=== PATIENT | female | born 1945 | race Caucasian/White ===

== ENCOUNTER 2017-01-22 09:57 | Outpatient (CLI) | payer MEDICARE | END 2017-01-22 09:58 | disposition home or self-care (01) | DX: E06.5 Other chronic thyroiditis (principal); R04.0 Epistaxis; E21.3 Hyperparathyroidism, unspecified; I48.91 Unspecified atrial fibrillation ==

== ENCOUNTER 2017-04-06 08:52 | Outpatient (CLI) | payer OTHER ==
[2017-04-06 10:57] LABS: THYROID STIMULATING HORMONE 3.81 uIU/mL (0.34-5.60)
== END 2017-04-06 08:53 | disposition home or self-care (01) ==
LOC: LAB 08:52
PROVIDERS: ATTEND Internal Medicine Endocrinology, Diabetes & Metabolism
DX: E04.1 Nontoxic single thyroid nodule (principal)
CPT/HCPCS: 36415; 84439; 84443

== ENCOUNTER 2017-04-22 11:42 | Outpatient (CLI) | payer OTHER ==
[2017-04-22 13:53] LABS: THYROID STIMULATING HORMONE 3.74 uIU/mL (0.34-5.60)
== END 2017-04-22 11:43 | disposition home or self-care (01) ==
LOC: LAB 11:42
PROVIDERS: ATTEND Internal Medicine Endocrinology, Diabetes & Metabolism
DX: E04.1 Nontoxic single thyroid nodule (principal)
CPT/HCPCS: 36415; 84439; 84443

== ENCOUNTER 2017-05-31 09:16 | Outpatient (CLI) | payer OTHER ==
--- NOTE | 2017-06-01 06:40 | DEXA Report ---
DEXA BONE MINERAL DENSITY STUDY: 05/31/2017 CLINICAL HISTORY: A 71-year-old postmenopausal female with hyperparathyroidism. TECHNIQUE: Dual energy x-ray absorptiometry (DXA) was performed on a [employer] system. Regions measured are the AP spine, femoral neck, and, if needed, forearm. COMPARISON: None. In accordance with the International Society for Clinical Densitometry (ISCD) guidelines, data from previous exams may be reanalyzed using current recommendations and techniques. This is done to allow a more accurate basis for comparison with the current study. FINDINGS: L1 through L4 bone mineral density is 1.126 grams/square cm for a T- score of -0.5. This is within normal limits according to World Health Organization guidelines. This T-score may be artifactually elevated by scoliosis and significant osteoarthritis as well as degenerative joint disease. Left hip total bone mineral density is 0.864 grams/square cm for a T-score of - 1.1. This is compatible with mild osteopenia according to World Health Organization guidelines. Left femoral neck bone mineral density is 0.820 grams/square cm for a T-score of -1.6. This is compatible with osteopenia according to World Health Organization guidelines. Left wrist radius 33% bone mineral density is 0.56 grams/square cm for a T- score of -3.6. This is compatible with osteoporosis according to World Health Organization guidelines. The data for the lumbar spine is as follows: REGION BMD (g/cm/cm) T-SCORE Z-SCORE L1 0.895 -2.0 -0.6 L2 1.101 -0.8 0.5 L3 1.299 0.8 2.2 L4 1.198 0.0 1.3 TOTAL 1.126 -0.5 0.9 NOTE: All evaluable vertebrae are used for classification. The data for the hip is as follows: REGION BMD (g/cm/cm) T-SCORE Z-SCORE Neck 0.820 -1.6 -0.1 TOTAL 0.864 -1.1 0.1 NOTE: The femoral neck or total proximal femur, whichever is lowest, is used for classification. The data for the forearm is as follows: REGION BMD (g/cm/cm) T-SCORE Z-SCORE 1/3 0.560 -3.6 -1.7 NOTE: The 33% radius of the nondominant forearm is used for classification. IMPRESSION: THE WHO CLASSIFICATION BASED ON THE INTERNATIONAL REFERENCE STANDARD IS OSTEOPOROSIS. THE FRACTURE RISK IS SIGNIFICANTLY INCREASED. RECOMMENDATION: Patients with diagnosis of osteoporosis or osteopenia should have regular bone mineral density assessment. For those eligible for Medicare, routine testing is allowed once every 2 years. Testing frequency can be increased for patients who have rapidly progressing disease or for those who are receiving medical therapy to restore bone mass. COMMENT: World Health Organization (WHO) definitions for osteoporosis and osteopenia: NORMAL BMD: T-score at -1.0 or higher, fracture risk is low. OSTEOPENIA BMD: T-score between -1.0 and -2.5, fracture risk is increased. OSTEOPOROSIS BMD: T-score at -2.5 or lower, fracture risk high. National Osteoporosis Foundation recommends: 1. Obtain adequate dietary calcium (at least 1200 mg per day) and vitamin D (400 -800 international units per day). 2. Participate, as appropriate, in regular weightbearing and muscle- strengthening exercise. 3. Avoid tobacco use and reduce alcohol and caffeine intake. 4. For more detailed information see the website at www.NOF.org. MTDD
== END 2017-05-31 09:17 | disposition home or self-care (01) ==
LOC: DI 09:16
PROVIDERS: ATTEND Internal Medicine Endocrinology, Diabetes & Metabolism
DX: M81.0 Age-related osteoporosis without current pathological fracture (principal); E03.9 Hypothyroidism, unspecified
CPT/HCPCS: 36415; 77080; 77081; 84439; 84443

== ENCOUNTER 2017-05-31 09:54 | Outpatient (CLI) | payer OTHER ==
[2017-05-31 11:48] LABS: THYROID STIMULATING HORMONE 3.12 uIU/mL (0.34-5.60)
== END 2017-05-31 09:55 | disposition home or self-care (01) ==
LOC: LAB 09:54
PROVIDERS: ATTEND Internal Medicine Endocrinology, Diabetes & Metabolism
DX: E03.9 Hypothyroidism, unspecified (principal)
CPT/HCPCS: 36415; 84439; 84443

== ENCOUNTER 2017-07-30 08:03 | Outpatient (CLI) | payer OTHER ==
[2017-07-30 08:48] LABS: CALCIUM, IONIZED 1.1 mmol/L (1.15-1.33); VBG PH 7.361 (7.31-7.41)
[2017-07-30 08:51] LABS: BASOPHILS % (AUTO) 1.1 %; EOSINOPHILS # (AUTO) 0.1 10^3/uL (0.0-0.7); EOSINOPHILS % (AUTO) 1.4 %; HCT - HEMATOCRIT 41.9 % (37.0-47.0); HGB - HEMOGLOBIN 14.4 g/dL (12.0-16.0); LYMPHOCYTES # (AUTO) 1.5 10^3/uL (1.5-3.5); LYMPHOCYTES % (AUTO) 33.8 %; MEAN CORPUSCULAR HEMOGLOBIN 32.3 pg (27.0-31.0); MEAN CORPUSCULAR HGB CONC 34.3 g/dL (32.0-36.0); MEAN CORPUSCULAR VOLUME 94.1 fL (81.0-99.0); MEAN PLATELET VOLUME 8.5 fL (7.9-10.8); MONOCYTES # (AUTO) 0.4 10^3/uL (0.0-1.0); MONOCYTES % (AUTO) 8.8 %; NEUTROPHILS # (AUTO) 2.4 10^3/uL (1.5-6.6); NEUTROPHILS % (AUTO) 54.9 %; NUCLEATED RED BLOOD CELLS AUTO 0.1 /100WBC; RED BLOOD COUNT 4.45 10^6/uL (4.20-5.40); RED CELL DISTRIBUTION WIDTH 12.7 % (12.0-15.0); UNCORRECTED WHITE BLOOD COUNT 4.3 x10^3/uL; WHITE BLOOD COUNT 4.3 x10^3/uL (4.8-10.8)
[2017-07-30 08:59] LABS: ALBUMIN/GLOBULIN RATIO 1.8 (1.0-2.2); CALCIUM 8.6 mg/dL (8.5-10.3); CREATININE 0.9 mg/dL (0.4-1.0); TOTAL PROTEIN 6.6 g/dL (6.7-8.2)
[2017-07-30 09:33] LABS: THYROID STIMULATING HORMONE 4.48 uIU/mL (0.34-5.60)
== END 2017-07-30 08:04 | disposition home or self-care (01) ==
LOC: LAB 08:03
PROVIDERS: ATTEND Family Medicine
DX: E06.5 Other chronic thyroiditis (principal); E78.5 Hyperlipidemia, unspecified; E21.3 Hyperparathyroidism, unspecified; I48.91 Unspecified atrial fibrillation
CPT/HCPCS: 36415; 80053; 82330; 83970; 84439; 84443; 85025

== ENCOUNTER 2017-10-11 10:09 | Outpatient (CLI) | payer OTHER ==
[2017-10-11 10:41] LABS: CALCIUM, IONIZED 1.11 mmol/L (1.15-1.33); VBG PH 7.35 (7.31-7.41)
[2017-10-11 10:49] LABS: CALCIUM 8.8 mg/dL (8.5-10.3); CREATININE 0.9 mg/dL (0.4-1.0); POTASSIUM 3.7 mmol/L (3.5-5.0)
== END 2017-10-11 10:10 | disposition home or self-care (01) ==
LOC: LAB 10:09
PROVIDERS: ATTEND Family Medicine
DX: E21.3 Hyperparathyroidism, unspecified (principal); E06.5 Other chronic thyroiditis; E78.5 Hyperlipidemia, unspecified; I48.91 Unspecified atrial fibrillation
CPT/HCPCS: 36415; 80048; 82330; 83970

== ENCOUNTER 2017-11-16 09:51 | Outpatient (CLI) | payer MEDICARE ==
[2017-11-16 10:28] LABS: VBG PH 7.373 (7.31-7.41)
[2017-11-16 11:01] LABS: ALBUMIN 4.4 g/dL (3.2-5.5); ALBUMIN/GLOBULIN RATIO 1.8 (1.0-2.2); ALKALINE PHOSPHATASE 70 IU/L (42-121); ALT ALANINE AMINOTRANSFERASE 33 IU/L (10-60); AST ASPARTATE AMINOTRANSFERASE 31 IU/L (10-42); BUN - BLOOD UREA NITROGEN 29 mg/dL (6-20); CALCIUM 9.6 mg/dL (8.5-10.3); CARBON DIOXIDE - CO2 32 mmol/L (21-32); CHLORIDE 101 mmol/L (101-111); CREATININE 1.2 mg/dL (0.4-1.0); GFR - MDRD 44 (>89); GLUCOSE 114 mg/dL (70-100); SODIUM 140 mmol/L (135-145); TOTAL PROTEIN 6.9 g/dL (6.7-8.2)
== END 2017-11-16 09:52 | disposition home or self-care (01) ==
LOC: LAB 09:51
PROVIDERS: ATTEND Family Medicine
DX: E06.5 Other chronic thyroiditis (principal); E83.51 Hypocalcemia; E21.3 Hyperparathyroidism, unspecified; E55.9 Vitamin D deficiency, unspecified
CPT/HCPCS: 36415; 80053; 82306; 82330; 84443

== ENCOUNTER 2017-11-18 07:12 | Day surgery (SDC) | payer MEDICARE, OTHER ==
[2017-11-18] MEDS ORDERED: LACTATED RINGERS 1,000 ML IV ONE (07:38)
[2017-11-18] MEDS ORDERED: fentaNYL 100 MCG/2 ML VIAL IVP ONE (08:44)
[2017-11-18] MEDS ORDERED: MIDAZOLAM 2 MG/2 ML VIAL IVP ONE (08:44)
[2017-11-18 09:09] VITALS: BP 92/75
== END 2017-11-18 07:13 | disposition home or self-care (01) ==
LOC: SDS 07:12
PROVIDERS: ATTEND Surgery
PROC: 0DBM8ZX Excision of Descending Colon, Via Natural or Artificial Opening Endoscopic, Diagnostic (ICD-10-PCS; 2017-11-18)
PROC: 0DBK8ZX Excision of Ascending Colon, Via Natural or Artificial Opening Endoscopic, Diagnostic (ICD-10-PCS; principal; 2017-11-18 08:15)
DX: Z12.11 Encounter for screening for malignant neoplasm of colon (principal); D12.2 Benign neoplasm of ascending colon; K64.8 Other hemorrhoids; K63.5 Polyp of colon; Z79.01 Long term (current) use of anticoagulants
CPT/HCPCS: 45380; J7120

== ENCOUNTER 2017-12-28 09:09 | Outpatient (CLI) | payer MEDICARE ==
[2017-12-28 09:50] LABS: CHOL/HDL RATIO 2.7 (<4.4); CHOLESTEROL 146 mg/dL; HDL CHOLESTEROL 55 mg/dL; LDL CHOLESTEROL,CALCULATED 74 mg/dL; LDL/HDL RATIO 1.3 (<4.4); VLDL CHOLESTEROL 17 mg/dL
== END 2017-12-28 09:10 | disposition home or self-care (01) ==
LOC: LAB 09:09
PROVIDERS: ATTEND Internal Medicine Cardiovascular Disease
DX: E78.5 Hyperlipidemia, unspecified (principal)
CPT/HCPCS: 36415; 80061; 83721

== ENCOUNTER 2018-06-21 08:54 | Outpatient (CLI) | payer MEDICARE ==
[2018-06-21 13:36] LABS: ALBUMIN 4.2 g/dL (3.2-5.5); ALBUMIN/GLOBULIN RATIO 1.6 (1.0-2.2); ALKALINE PHOSPHATASE 64 IU/L (42-121); ALT ALANINE AMINOTRANSFERASE 28 IU/L (10-60); AST ASPARTATE AMINOTRANSFERASE 31 IU/L (10-42); BUN - BLOOD UREA NITROGEN 20 mg/dL (6-20); CARBON DIOXIDE - CO2 29 mmol/L (21-32); CHLORIDE 105 mmol/L (101-111); CREATININE 0.9 mg/dL (0.4-1.0); GFR - MDRD 62 (>89); GLUCOSE 88 mg/dL (70-100); SODIUM 142 mmol/L (135-145); TOTAL PROTEIN 6.8 g/dL (6.7-8.2)
== END 2018-06-21 08:55 ==
LOC: LAB.WCP 08:54
PROVIDERS: ATTEND Family Medicine
DX: E83.51 Hypocalcemia (principal); E06.5 Other chronic thyroiditis; E21.3 Hyperparathyroidism, unspecified; I48.91 Unspecified atrial fibrillation
CPT/HCPCS: 36415; 80053; 84443

== ENCOUNTER 2018-11-11 10:42 | Outpatient (CLI) | payer MEDICARE ==
--- NOTE | 2018-11-14 08:55 | Mammography Report ---
Reason: SCREENING MAMMO Procedure Date: 11/11/2018 Accession Number: [id number] / [id number] Procedure: KARLA - Screening Mammo w/Jacky CPT Code: FULL RESULT: EXAM: Screening Mammo w/Jacky DATE: 11/11/2018 10:53 AM CLINICAL HISTORY: Screening encounter. No reported risk factors. TECHNIQUE: Bilateral CC and MLO views were obtained. COMPARISON: 11/03/2016 through 03/29/2012. FINDINGS: The breasts demonstrate scattered fibroglandular densities bilaterally. There are typically benign vascular calcifications. No suspicious masses, clustered microcalcifications, or regions of architectural distortion are identified. IMPRESSION: Benign findings RECOMMENDATION: Routine annual screening unless otherwise clinically indicated. BIRADS CATEGORY 2: Benign findings STANDARD QUALIFYING STATEMENTS: 1. This examination was not reviewed with the aid of Computer-Aided Detection (CAD). 2. A negative or benign imaging report should not preclude biopsy if clinically suspicious findings are present. 3. Dense breasts may obscure an underlying neoplasm. 4. This examination was reviewed with the aid of 3D breast imaging (tomosynthesis).
== END 2018-11-11 10:43 | disposition home or self-care (01) ==
LOC: DI 10:42
DX: Z12.31 Encounter for screening mammogram for malignant neoplasm of breast (principal)
CPT/HCPCS: 77063; 77067

== ENCOUNTER 2018-12-13 08:00 | Outpatient (CLI) | payer MEDICARE ==
[2018-12-13 13:15] LABS: BASOPHILS # (AUTO) 0.1 10^3/uL (0.0-0.1); BASOPHILS % (AUTO) 1.3 %; EOSINOPHILS # (AUTO) 0.1 10^3/uL (0.0-0.7); EOSINOPHILS % (AUTO) 1.2 %; HGB - HEMOGLOBIN 14.1 g/dL (12.0-16.0); LYMPHOCYTES # (AUTO) 1.6 10^3/uL (1.5-3.5); LYMPHOCYTES % (AUTO) 36.4 %; MEAN CORPUSCULAR HEMOGLOBIN 32.8 pg (27.0-31.0); MEAN CORPUSCULAR HGB CONC 34.8 g/dL (32.0-36.0); MEAN CORPUSCULAR VOLUME 94.3 fL (81.0-99.0); MEAN PLATELET VOLUME 9.1 fL (7.9-10.8); MONOCYTES # (AUTO) 0.3 10^3/uL (0.0-1.0); MONOCYTES % (AUTO) 7.7 %; NEUTROPHILS # (AUTO) 2.4 10^3/uL (1.5-6.6); NEUTROPHILS % (AUTO) 53.4 %; PLT - PLATELET COUNT 189 10^3/uL (130-450); RED CELL DISTRIBUTION WIDTH 12.6 % (12.0-15.0); WHITE BLOOD COUNT 4.4 x10^3/uL (4.8-10.8)
[2018-12-13 13:22] LABS: ALBUMIN 4.1 g/dL (3.2-5.5); ALBUMIN/GLOBULIN RATIO 1.6 (1.0-2.2); ALKALINE PHOSPHATASE 68 IU/L (42-121); ALT ALANINE AMINOTRANSFERASE 25 IU/L (10-60); AST ASPARTATE AMINOTRANSFERASE 25 IU/L (10-42); BILIRUBIN,TOTAL 0.8 mg/dL (0.2-1.0); BUN - BLOOD UREA NITROGEN 22 mg/dL (6-20); CARBON DIOXIDE - CO2 30 mmol/L (21-32); CHLORIDE 103 mmol/L (101-111); CHOL/HDL RATIO 2.5 (<4.4); CHOLESTEROL 168 mg/dL; CREATININE 1.1 mg/dL (0.4-1.0); GFR - MDRD 49 (>89); GLUCOSE 98 mg/dL (70-100); HDL CHOLESTEROL 66 mg/dL; LDL CHOLESTEROL,CALCULATED 86 mg/dL; LDL/HDL RATIO 1.3 (<4.4); SODIUM 141 mmol/L (135-145); TOTAL PROTEIN 6.7 g/dL (6.7-8.2); VLDL CHOLESTEROL 16 mg/dL
[2018-12-15 15:01] LABS: ANA SCREEN NEGATIVE (NEGATIVE)
== END 2018-12-13 23:59 | disposition home or self-care (01) ==
LOC: LAB.WCP 08:00
PROVIDERS: ATTEND Physician Assistant
DX: I73.00 Raynaud's syndrome without gangrene (principal); I49.3 Ventricular premature depolarization; M85.80 Other specified disorders of bone density and structure, unspecified site; E78.5 Hyperlipidemia, unspecified; I48.91 Unspecified atrial fibrillation; L65.9 Nonscarring hair loss, unspecified
CPT/HCPCS: 36415; 80053; 80061; 83721; 83970; 84443; 85025; 86038

== ENCOUNTER 2019-02-17 08:00 | Outpatient (CLI) | payer MEDICARE ==
[2019-02-17 13:06] LABS: CALCIUM 9.1 mg/dL (8.5-10.3)
== END 2019-02-17 23:59 | disposition home or self-care (01) ==
LOC: LAB.WCP 08:00
PROVIDERS: ATTEND Family Medicine
DX: I10 Essential (primary) hypertension (principal)
CPT/HCPCS: 36415; 80048

== ENCOUNTER 2019-02-25 08:17 | Outpatient (CLI) | payer MEDICARE ==
[2019-02-25 08:32] LABS: HGB - HEMOGLOBIN 13.7 g/dL (12.0-16.0); MEAN CORPUSCULAR HEMOGLOBIN 31.6 pg (27.0-31.0); MEAN CORPUSCULAR HGB CONC 33.6 g/dL (32.0-36.0); MEAN CORPUSCULAR VOLUME 93.9 fL (81.0-99.0); RED BLOOD COUNT 4.35 10^6/uL (4.20-5.40); RED CELL DISTRIBUTION WIDTH 12.5 % (12.0-15.0); WHITE BLOOD COUNT 3.9 x10^3/uL (4.8-10.8)
[2019-02-25 09:58] LABS: TOTAL PROTEIN,URINE TIMED < 6 mg/dL
== END 2019-02-25 08:18 | disposition home or self-care (01) ==
LOC: LAB 08:17
PROVIDERS: ATTEND Internal Medicine Nephrology
DX: N05.9 Unspecified nephritic syndrome with unspecified morphologic changes (principal); D63.1 Anemia in chronic kidney disease; R80.9 Proteinuria, unspecified; D70.9 Neutropenia, unspecified
CPT/HCPCS: 36415; 82570; 84156; 85027

== ENCOUNTER 2019-04-11 08:41 | Outpatient (CLI) | payer MEDICARE ==
[2019-04-11 09:01] LABS: BASOPHILS # (AUTO) 0.1 10^3/uL (0.0-0.1); BASOPHILS % (AUTO) 1.9 %; EOSINOPHILS # (AUTO) 0.1 10^3/uL (0.0-0.7); EOSINOPHILS % (AUTO) 1.8 %; HGB - HEMOGLOBIN 13.7 g/dL (12.0-16.0); LYMPHOCYTES # (AUTO) 1.4 10^3/uL (1.5-3.5); LYMPHOCYTES % (AUTO) 31.9 %; MEAN CORPUSCULAR HEMOGLOBIN 31.9 pg (27.0-31.0); MEAN CORPUSCULAR HGB CONC 34.1 g/dL (32.0-36.0); MEAN CORPUSCULAR VOLUME 93.5 fL (81.0-99.0); MEAN PLATELET VOLUME 7.8 fL (7.9-10.8); MONOCYTES # (AUTO) 0.3 10^3/uL (0.0-1.0); MONOCYTES % (AUTO) 6.9 %; NEUTROPHILS # (AUTO) 2.5 10^3/uL (1.5-6.6); NEUTROPHILS % (AUTO) 57.5 %; PLT - PLATELET COUNT 188 10^3/uL (130-450); RED BLOOD COUNT 4.29 10^6/uL (4.20-5.40); RED CELL DISTRIBUTION WIDTH 12.8 % (12.0-15.0); WHITE BLOOD COUNT 4.3 x10^3/uL (4.8-10.8)
[2019-04-11 09:15] LABS: BUN - BLOOD UREA NITROGEN 19 mg/dL (6-20); CALCIUM 9.1 mg/dL (8.5-10.3); CARBON DIOXIDE - CO2 29 mmol/L (21-32); CHLORIDE 101 mmol/L (101-111); CHOL/HDL RATIO 2.5 (<4.4); CHOLESTEROL 151 mg/dL; CREATININE 0.9 mg/dL (0.4-1.0); GFR - MDRD 62 (>89); GLUCOSE 93 mg/dL (70-100); HDL CHOLESTEROL 61 mg/dL; LDL CHOLESTEROL,CALCULATED 73 mg/dL; LDL/HDL RATIO 1.2 (<4.4); SODIUM 140 mmol/L (135-145); VLDL CHOLESTEROL 17 mg/dL
[2019-04-11 11:31] LABS: CALCIUM 9.3 mg/dL (8.5-10.3); CREATININE 0.9 mg/dL (0.4-1.0); PHOSPHORUS 3.7 mg/dL (2.5-4.6)
== END 2019-04-11 08:42 | disposition home or self-care (01) ==
LOC: LAB 08:41
PROVIDERS: ATTEND Internal Medicine Cardiovascular Disease
DX: E83.30 Disorder of phosphorus metabolism, unspecified (principal); N25.81 Secondary hyperparathyroidism of renal origin; E78.5 Hyperlipidemia, unspecified
CPT/HCPCS: 36415; 80048; 80061; 83721; 83970; 84100; 85025

== ENCOUNTER 2019-11-03 09:16 | Outpatient (CLI) | payer MEDICARE ==
[2019-11-03 13:03] LABS: MICROALBUM/CREATININE RATIO,UR 26.8 ug/mg (<30.0)
[2019-11-03 13:08] LABS: BASOPHILS # (AUTO) 0.1 10^3/uL (0.0-0.1); BASOPHILS % (AUTO) 1.3 %; EOSINOPHILS # (AUTO) 0.1 10^3/uL (0.0-0.7); EOSINOPHILS % (AUTO) 1.5 %; HGB - HEMOGLOBIN 13.9 g/dL (12.0-16.0); LYMPHOCYTES # (AUTO) 1.5 10^3/uL (1.5-3.5); LYMPHOCYTES % (AUTO) 32.5 %; MEAN CORPUSCULAR HEMOGLOBIN 32.3 pg (27.0-31.0); MEAN CORPUSCULAR HGB CONC 33.5 g/dL (32.0-36.0); MEAN CORPUSCULAR VOLUME 96.3 fL (81.0-99.0); MEAN PLATELET VOLUME 10.8 fL (7.9-10.8); MONOCYTES # (AUTO) 0.4 10^3/uL (0.0-1.0); MONOCYTES % (AUTO) 9.3 %; NEUTROPHILS # (AUTO) 2.6 10^3/uL (1.5-6.6); NEUTROPHILS % (AUTO) 55.2 %; PLT - PLATELET COUNT 205 10^3/uL (130-450); RED BLOOD COUNT 4.31 10^6/uL (4.20-5.40); RED CELL DISTRIBUTION WIDTH 12.1 % (12.0-15.0); WHITE BLOOD COUNT 4.7 x10^3/uL (4.8-10.8)
[2019-11-03 13:35] LABS: ALBUMIN/GLOBULIN RATIO 1.7 (1.0-2.2); ALKALINE PHOSPHATASE 68 IU/L (42-121); ALT ALANINE AMINOTRANSFERASE 26 IU/L (10-60); AST ASPARTATE AMINOTRANSFERASE 28 IU/L (10-42); BILIRUBIN,TOTAL 0.8 mg/dL (0.2-1.0); BUN - BLOOD UREA NITROGEN 21 mg/dL (6-20); CALCIUM 8.9 mg/dL (8.5-10.3); CARBON DIOXIDE - CO2 31 mmol/L (21-32); CHLORIDE 105 mmol/L (101-111); CHOL/HDL RATIO 2.7 (<4.4); CHOLESTEROL 148 mg/dL; GFR - MDRD 54 (>89); GLUCOSE 91 mg/dL (70-100); HDL CHOLESTEROL 55 mg/dL; LDL CHOLESTEROL,CALCULATED 77 mg/dL; LDL/HDL RATIO 1.4 (<4.4); SODIUM 142 mmol/L (135-145); TOTAL PROTEIN 6.4 g/dL (6.7-8.2); VLDL CHOLESTEROL 16 mg/dL
== END 2019-11-03 23:59 | disposition home or self-care (01) ==
LOC: LAB.WCP 09:16
PROVIDERS: ATTEND Family Medicine
DX: M72.0 Palmar fascial fibromatosis [Dupuytren] (principal); I12.9 Hypertensive chronic kidney disease with stage 1 through stage 4 chronic kidney disease, or unspecified chronic kidney disease; N18.3 Chronic kidney disease, stage 3 (moderate); I49.3 Ventricular premature depolarization; E21.3 Hyperparathyroidism, unspecified; I48.91 Unspecified atrial fibrillation
CPT/HCPCS: 36415; 80053; 80061; 82043; 82570; 83721; 83970; 84443; 85025

== ENCOUNTER 2019-11-28 10:42 | Outpatient (CLI) | payer MEDICARE ==
--- NOTE | 2019-11-29 16:42 | Mammography Report ---
Reason: SCREENING MAMMO Procedure Date: 11/28/2019 Accession Number: [id number] / [id number] Procedure: KARLA - Screening Mammo w/Jacky CPT Code: Final Report FULL RESULT: EXAM: Screening Mammo w/Jacky DATE: 11/28/2019 11:13 AM CLINICAL HISTORY: Screening encounter. None. TECHNIQUE: (B) - Bilateral CC, laterally exaggerated CC, MLO views were obtained. COMPARISON: 06/17/2017 through 11/20/2010. PARENCHYMAL PATTERN: (D) - The breast(s) demonstrate(s) heterogeneously dense fibroglandular parenchyma. FINDINGS: There are typically benign vascular calcifications. A isodense tomographically well circumscribed mass in the retroareolar lower left breast, 1.4 cm from the nipple centrally demonstrates long-term stability and is most consistent with a typically benign cyst. There are no suspicious masses, calcifications, or areas of distortion. IMPRESSION: Benign findings. BI-RADS category 2. RECOMMENDATION: (ANNUAL) - Recommend routine annual screening mammography. BI-RADS CATEGORY: (2) - Benign Findings. STANDARD QUALIFYING STATEMENTS: 1. This examination was not reviewed with the aid of Computer-Aided Detection (CAD). 2. A negative or benign imaging report should not preclude biopsy if clinically suspicious findings are present. 3. Dense breasts may obscure an underlying neoplasm. 4. This examination was reviewed with the aid of 3D breast imaging (tomosynthesis).
== END 2019-11-28 10:43 | disposition home or self-care (01) ==
LOC: DI 10:42
DX: Z12.31 Encounter for screening mammogram for malignant neoplasm of breast (principal)
CPT/HCPCS: 77063; 77067

== ENCOUNTER 2020-05-10 08:00 | Outpatient (CLI) | payer MEDICARE ==
[2020-05-10 12:54] LABS: ALBUMIN 4.1 g/dL (3.2-5.5); ALBUMIN/GLOBULIN RATIO 1.7 (1.0-2.2); BILIRUBIN,TOTAL 1.1 mg/dL (0.2-1.0); CALCIUM 9.5 mg/dL (8.5-10.3); CREATININE 0.9 mg/dL (0.4-1.0); TOTAL PROTEIN 6.5 g/dL (6.7-8.2)
[2020-05-10 13:10] LABS: CREATININE,URINE 49.7 mg/dL; MICROALBUM/CREATININE RATIO,UR 22.1 ug/mg (<30.0); MICROALBUMIN,URINE 1.1 mg/dL (0-300.0)
== END 2020-05-10 23:59 | disposition home or self-care (01) ==
LOC: LAB.WCP 08:00
PROVIDERS: ATTEND Family Medicine
DX: C44.90 Unspecified malignant neoplasm of skin, unspecified (principal); I12.9 Hypertensive chronic kidney disease with stage 1 through stage 4 chronic kidney disease, or unspecified chronic kidney disease; N18.3 Chronic kidney disease, stage 3 (moderate); R10.30 Lower abdominal pain, unspecified; E21.3 Hyperparathyroidism, unspecified; I48.91 Unspecified atrial fibrillation
CPT/HCPCS: 36415; 80053; 82043; 82570; 83970

== ENCOUNTER 2020-10-29 09:03 | Outpatient (CLI) | payer MEDICARE ==
[2020-10-29 13:45] LABS: BASOPHILS # (AUTO) 0.1 10^3/uL (0.0-0.1); BASOPHILS % (AUTO) 1.6 %; EOSINOPHILS # (AUTO) 0.1 10^3/uL (0.0-0.7); EOSINOPHILS % (AUTO) 1.1 %; HGB - HEMOGLOBIN 13.4 g/dL (12.0-16.0); LYMPHOCYTES # (AUTO) 1.5 10^3/uL (1.5-3.5); LYMPHOCYTES % (AUTO) 32.4 %; MEAN CORPUSCULAR HEMOGLOBIN 32.1 pg (27.0-31.0); MEAN CORPUSCULAR HGB CONC 33.2 g/dL (32.0-36.0); MEAN CORPUSCULAR VOLUME 96.9 fL (81.0-99.0); MEAN PLATELET VOLUME 10.6 fL (7.9-10.8); MONOCYTES # (AUTO) 0.4 10^3/uL (0.0-1.0); MONOCYTES % (AUTO) 9.8 %; NEUTROPHILS # (AUTO) 2.5 10^3/uL (1.5-6.6); NEUTROPHILS % (AUTO) 54.9 %; PLT - PLATELET COUNT 205 10^3/uL (130-450); RED BLOOD COUNT 4.17 10^6/uL (4.20-5.40); RED CELL DISTRIBUTION WIDTH 12.2 % (12.0-15.0); WHITE BLOOD COUNT 4.5 x10^3/uL (4.8-10.8)
[2020-10-29 14:08] LABS: ALBUMIN 4.2 g/dL (3.2-5.5); ALBUMIN/GLOBULIN RATIO 1.6 (1.0-2.2); ALKALINE PHOSPHATASE 77 IU/L (42-121); ALT ALANINE AMINOTRANSFERASE 33 IU/L (10-60); AST ASPARTATE AMINOTRANSFERASE 31 IU/L (10-42); BILIRUBIN,TOTAL 1.2 mg/dL (0.2-1.0); BUN - BLOOD UREA NITROGEN 24 mg/dL (6-20); CALCIUM 9.7 mg/dL (8.5-10.3); CARBON DIOXIDE - CO2 29 mmol/L (21-32); CHLORIDE 101 mmol/L (101-111); CHOL/HDL RATIO 2.6 (<4.4); CHOLESTEROL 161 mg/dL; GLUCOSE 91 mg/dL (70-100); HDL CHOLESTEROL 63 mg/dL; LDL CHOLESTEROL,CALCULATED 87 mg/dL; LDL/HDL RATIO 1.4 (<4.4); TOTAL PROTEIN 6.9 g/dL (6.7-8.2); VLDL CHOLESTEROL 11 mg/dL
[2020-10-29 14:15] LABS: CREATININE,URINE 52.5 mg/dL; MICROALBUM/CREATININE RATIO,UR 9.5 ug/mg (<30.0); MICROALBUMIN,URINE 0.5 mg/dL (0-300.0)
== END 2020-10-29 23:59 | disposition home or self-care (01) ==
LOC: LAB.WCP 09:03
PROVIDERS: ATTEND Nurse Practitioner
DX: N18.30 Chronic kidney disease, stage 3 unspecified (principal); E78.5 Hyperlipidemia, unspecified; E55.9 Vitamin D deficiency, unspecified; E21.3 Hyperparathyroidism, unspecified; E06.5 Other chronic thyroiditis
CPT/HCPCS: 36415; 80053; 80061; 82043; 82306; 82570; 83721; 83970; 84443; 85025

== ENCOUNTER 2021-04-02 12:43 | Outpatient (CLI) | payer MEDICARE ==
--- NOTE | 2021-04-07 15:26 | DEXA Report ---
PROCEDURE: Dexa Spine and/or Hip INDICATIONS: POSTMENOPAUSAL/ Forearm added due hyperparathyroidism TECHNIQUE: Dual energy x-ray absorptiometry (DXA) was performed on a [employer] System. Regions measur ed are the AP Spine, femoral neck, and if needed forearm. Forearm was obtained secondary to significa nt lumbar scoliotic curvature and hyperparathyroidism. COMPARISON: None. FINDINGS: Lumbar Spine: Bone Mineral Density 1.072 g/cm/cm,T score -0.9, compared to -0.5 Left Hip: Bone Mineral Density 0.873 g/cm/cm,T score -1.1, compared to -1.1 Left Femoral Neck: Bone Mineral Density 0.837 g/cm/cm, T score -1.4, compared to -1.6 Left forearm: Bone Mineral Density 0.460 g/cm/cm, T score -3.6, compared to -4.4 (T score greater or equal to -1.0: NORMAL) (T score from -1.1 to -2.4: OSTEOPENIA) (T score less than or equal to -2.5 to: OSTEOPOROSIS) Impression: Persistent osteoporosis although slightly less prominent in the left forearm. Minimally i mproved osteopenia within the left femoral neck. Patients with diagnosis of osteoporosis or osteopenia should have regular bone mineral density assess ment. For those eligible for Medicare, routine testing is allowed once every 2 years. Testing frequ ency can be increased for patients who have rapidly progressing disease or for those who are receivin g medical therapy to restore bone mass. Reviewed by: Virginia Cazares MD on 04/03/2021 4:06 PM PDT Approved by: Virginia Cazares MD on 04/03/2021 4:06 PM PDT Station ID: [id number]
== END 2021-04-02 12:44 | disposition home or self-care (01) ==
LOC: DI 12:43
PROVIDERS: ATTEND Physician Assistant Medical
DX: M81.0 Age-related osteoporosis without current pathological fracture (principal)

== ENCOUNTER 2021-04-02 12:46 | Outpatient (CLI) | payer MEDICARE ==
--- NOTE | 2021-04-03 13:42 | Mammography Report ---
BILATERAL DIGITAL SCREENING MAMMOGRAM 3D/2D: 04/02/2021 CLINICAL: Routine screening. Comparison is made to exams dated: 11/28/2019 mammogram, 11/11/2018 mammogram, 11/03/2016 mammogram, 10/14/2016 mammogram, and 10/29/2014 mammogram - [facility]. The tissue of both br easts is predominantly fatty. There is a stable benign focal asymmetry in the right breast. No significant masses, calcifications, or other findings are seen in either breast. There has been no significant interval change. IMPRESSION: BENIGN There is no mammographic evidence of malignancy. A 1 year screening mammogram is recommended. This exam was interpreted at Station ID: [id number]. NOTE: For mammograms, a report in lay terms will be sent to the patient. Approximately 15% of breast malignancies will not be visualized mammographically. In the management of a palpable breast mass, a negative mammogram must not discourage biopsy of a clinically suspicious lesion. Electronically Signed By: Dennis Lockhart acr/penrad:04/02/2021 15:10:44 ACR BI-RADS Category 2: Benign Finding(s) 3342F PARENCHYMAL PATTERN: (F) - The breast(s) demonstrate(s) diffuse fatty replacement. BI-RADS CATEGORY: (2) - 2 RECOMMENDATION: (ANNUAL) - Recommend routine annual screening mammography. [id number] 1 year screening LATERALITY: (B)
== END 2021-04-02 12:47 | disposition home or self-care (01) ==
LOC: DI 12:46
DX: Z12.31 Encounter for screening mammogram for malignant neoplasm of breast (principal)

== ENCOUNTER 2021-08-12 08:48 | Outpatient (CLI) | payer MEDICARE ==
[2021-08-12 13:24] LABS: BUN - BLOOD UREA NITROGEN 17 mg/dL (6-20); CALCIUM 9.2 mg/dL (8.5-10.3); CARBON DIOXIDE - CO2 30 mmol/L (21-32); CHLORIDE 103 mmol/L (101-111); CHOL/HDL RATIO 2.4 (<4.4); CHOLESTEROL 164 mg/dL; CREATININE 0.8 mg/dL (0.4-1.0); GFR - MDRD 70 (>89); GLUCOSE 87 mg/dL (70-100); HDL CHOLESTEROL 69 mg/dL; LDL CHOLESTEROL,CALCULATED 80 mg/dL; LDL/HDL RATIO 1.2 (<4.4); POTASSIUM 4.2 mmol/L (3.5-5.0); SODIUM 142 mmol/L (135-145); TRIGLYCERIDES 73 mg/dL; VLDL CHOLESTEROL 15 mg/dL
[2021-08-12 13:33] LABS: BASOPHILS # (AUTO) 0.1 10^3/uL (0.0-0.1); BASOPHILS % (AUTO) 1.5 %; EOSINOPHILS # (AUTO) 0.1 10^3/uL (0.0-0.7); EOSINOPHILS % (AUTO) 1.5 %; HCT - HEMATOCRIT 41.7 % (37.0-47.0); HGB - HEMOGLOBIN 13.9 g/dL (12.0-16.0); LYMPHOCYTES # (AUTO) 1.5 10^3/uL (1.5-3.5); MEAN CORPUSCULAR HEMOGLOBIN 32.3 pg (27.0-31.0); MEAN CORPUSCULAR HGB CONC 33.3 g/dL (32.0-36.0); MEAN CORPUSCULAR VOLUME 96.8 fL (81.0-99.0); MEAN PLATELET VOLUME 10.8 fL (7.9-10.8); MONOCYTES # (AUTO) 0.3 10^3/uL (0.0-1.0); MONOCYTES % (AUTO) 8.1 %; NEUTROPHILS # (AUTO) 2.1 10^3/uL (1.5-6.6); NEUTROPHILS % (AUTO) 51.7 %; PLT - PLATELET COUNT 197 10^3/uL (130-450); RED BLOOD COUNT 4.31 10^6/uL (4.20-5.40); RED CELL DISTRIBUTION WIDTH 11.9 % (12.0-15.0); WHITE BLOOD COUNT 4.1 x10^3/uL (4.8-10.8)
== END 2021-08-12 23:59 | disposition home or self-care (01) ==
LOC: LAB.WCP 08:48
PROVIDERS: ATTEND Internal Medicine Cardiovascular Disease
DX: I48.21 Permanent atrial fibrillation (principal); Z79.01 Long term (current) use of anticoagulants; E78.5 Hyperlipidemia, unspecified
CPT/HCPCS: 36415; 80048; 80061; 83721; 85025

== ENCOUNTER 2021-11-04 09:12 | Outpatient (CLI) | payer MEDICARE ==
[2021-11-04 14:51] LABS: BASOPHILS # (AUTO) 0.1 10^3/uL (0.0-0.1); BASOPHILS % (AUTO) 1.5 %; EOSINOPHILS # (AUTO) 0.1 10^3/uL (0.0-0.7); EOSINOPHILS % (AUTO) 1.5 %; HCT - HEMATOCRIT 42.1 % (37.0-47.0); LYMPHOCYTES # (AUTO) 1.5 10^3/uL (1.5-3.5); LYMPHOCYTES % (AUTO) 36.6 %; MEAN CORPUSCULAR HGB CONC 33.3 g/dL (32.0-36.0); MEAN CORPUSCULAR VOLUME 96.1 fL (81.0-99.0); MEAN PLATELET VOLUME 11.1 fL (7.9-10.8); MONOCYTES # (AUTO) 0.4 10^3/uL (0.0-1.0); MONOCYTES % (AUTO) 9.5 %; NEUTROPHILS # (AUTO) 2.1 10^3/uL (1.5-6.6); NEUTROPHILS % (AUTO) 50.7 %; PLT - PLATELET COUNT 177 10^3/uL (130-450); RED BLOOD COUNT 4.38 10^6/uL (4.20-5.40); RED CELL DISTRIBUTION WIDTH 12.4 % (12.0-15.0); WHITE BLOOD COUNT 4.1 x10^3/uL (4.8-10.8)
[2021-11-04 15:26] LABS: THYROID STIMULATING HORMONE 5.32 uIU/mL (0.34-5.60)
[2021-11-04 15:29] LABS: ALBUMIN 4.2 g/dL (3.2-5.5); ALBUMIN/GLOBULIN RATIO 1.5 (1.0-2.2); ALKALINE PHOSPHATASE 59 IU/L (42-121); ALT ALANINE AMINOTRANSFERASE 30 IU/L (10-60); AST ASPARTATE AMINOTRANSFERASE 32 IU/L (10-42); BUN - BLOOD UREA NITROGEN 16 mg/dL (6-20); CALCIUM 9.1 mg/dL (8.5-10.3); CARBON DIOXIDE - CO2 30 mmol/L (21-32); CHLORIDE 100 mmol/L (101-111); CHOL/HDL RATIO 2.5 (<4.4); CHOLESTEROL 154 mg/dL; CREATININE 0.9 mg/dL (0.4-1.0); GFR - MDRD 61 (>89); GLUCOSE 93 mg/dL (70-100); HDL CHOLESTEROL 62 mg/dL; LDL CHOLESTEROL,CALCULATED 78 mg/dL; LDL/HDL RATIO 1.3 (<4.4); SODIUM 138 mmol/L (135-145); TRIGLYCERIDES 72 mg/dL; VLDL CHOLESTEROL 14 mg/dL
== END 2021-11-04 23:59 | disposition home or self-care (01) ==
LOC: LAB.WCP 09:12
PROVIDERS: ATTEND Physician Assistant Medical
DX: I10 Essential (primary) hypertension (principal); E06.5 Other chronic thyroiditis; E78.5 Hyperlipidemia, unspecified; E21.3 Hyperparathyroidism, unspecified
CPT/HCPCS: 36415; 80053; 80061; 83721; 84443; 85025

== ENCOUNTER 2022-01-02 12:14 | Outpatient (CLI) | payer MEDICARE ==
[2022-01-02 19:32] LABS: THYROID STIMULATING HORMONE 3.99 uIU/mL (0.34-5.60)
== END 2022-01-02 12:15 | disposition home or self-care (01) ==
LOC: LAB.N 12:14
PROVIDERS: ATTEND Physician Assistant Medical
DX: E06.5 Other chronic thyroiditis (principal)
CPT/HCPCS: 36415; 84443

== ENCOUNTER 2022-05-05 08:38 | Outpatient (CLI) | payer MEDICARE ==
[2022-05-05 12:42] LABS: ALBUMIN 4.1 g/dL (3.2-5.5); ALBUMIN/GLOBULIN RATIO 1.6 (1.0-2.2); ALKALINE PHOSPHATASE 68 IU/L (42-121); ALT ALANINE AMINOTRANSFERASE 54 IU/L (10-60); AST ASPARTATE AMINOTRANSFERASE 45 IU/L (10-42); BUN - BLOOD UREA NITROGEN 23 mg/dL (6-20); CALCIUM 9.5 mg/dL (8.5-10.3); CARBON DIOXIDE - CO2 30 mmol/L (21-32); CHLORIDE 101 mmol/L (101-111); CHOL/HDL RATIO 2.3 (<4.4); CHOLESTEROL 143 mg/dL; GFR - MDRD 54 (>89); GLUCOSE 91 mg/dL (70-100); HDL CHOLESTEROL 61 mg/dL; LDL CHOLESTEROL,CALCULATED 68 mg/dL; LDL/HDL RATIO 1.1 (<4.4); POTASSIUM 3.9 mmol/L (3.5-5.0); SODIUM 139 mmol/L (135-145); TOTAL PROTEIN 6.7 g/dL (6.7-8.2); TRIGLYCERIDES 68 mg/dL; VLDL CHOLESTEROL 14 mg/dL
[2022-05-05 12:59] LABS: THYROID STIMULATING HORMONE 3.97 uIU/mL (0.34-5.60)
== END 2022-05-05 08:39 | disposition home or self-care (01) ==
LOC: LAB.N 08:38
PROVIDERS: ATTEND Physician Assistant Medical
DX: E06.5 Other chronic thyroiditis (principal); E78.5 Hyperlipidemia, unspecified
CPT/HCPCS: 36415; 80053; 80061; 83721; 84443

== ENCOUNTER 2022-10-05 09:10 | Outpatient (CLI) | payer MEDICARE ==
[2022-10-05 12:28] LABS: BASOPHILS % (AUTO) 1.1 %; EOSINOPHILS % (AUTO) 1.1 %; HCT - HEMATOCRIT 40.3 % (37.0-47.0); HGB - HEMOGLOBIN 13.4 g/dL (12.0-16.0); LYMPHOCYTES # (AUTO) 1.3 10^3/uL (1.5-3.5); LYMPHOCYTES % (AUTO) 35.7 %; MEAN CORPUSCULAR HEMOGLOBIN 32.2 pg (27.0-31.0); MEAN CORPUSCULAR HGB CONC 33.3 g/dL (32.0-36.0); MEAN CORPUSCULAR VOLUME 96.9 fL (81.0-99.0); MEAN PLATELET VOLUME 11.3 fL (7.9-10.8); MONOCYTES # (AUTO) 0.4 10^3/uL (0.0-1.0); MONOCYTES % (AUTO) 9.7 %; NEUTROPHILS # (AUTO) 1.9 10^3/uL (1.5-6.6); NEUTROPHILS % (AUTO) 52.1 %; PLT - PLATELET COUNT 170 10^3/uL (130-450); RED BLOOD COUNT 4.16 10^6/uL (4.20-5.40); RED CELL DISTRIBUTION WIDTH 12.4 % (12.0-15.0); WHITE BLOOD COUNT 3.6 x10^3/uL (4.8-10.8)
[2022-10-05 12:47] LABS: THYROID STIMULATING HORMONE 5.28 uIU/mL (0.34-5.60)
[2022-10-05 12:51] LABS: ALBUMIN 4.3 g/dL (3.2-5.5); ALBUMIN/GLOBULIN RATIO 1.4 (1.0-2.2); ALKALINE PHOSPHATASE 63 IU/L (42-121); ALT ALANINE AMINOTRANSFERASE 29 IU/L (10-60); AST ASPARTATE AMINOTRANSFERASE 33 IU/L (10-42); BILIRUBIN,TOTAL 0.9 mg/dL (0.2-1.0); BUN - BLOOD UREA NITROGEN 21 mg/dL (6-20); CALCIUM 9.5 mg/dL (8.5-10.3); CARBON DIOXIDE - CO2 31 mmol/L (21-32); CHLORIDE 103 mmol/L (101-111); CHOL/HDL RATIO 2.6 (<4.4); CHOLESTEROL 154 mg/dL; GFR - MDRD 54 (>89); GLUCOSE 95 mg/dL (70-100); HDL CHOLESTEROL 60 mg/dL; LDL CHOLESTEROL,CALCULATED 78 mg/dL; LDL/HDL RATIO 1.3 (<4.4); POTASSIUM 3.9 mmol/L (3.5-5.0); SODIUM 141 mmol/L (135-145); TOTAL PROTEIN 7.3 g/dL (6.7-8.2); TRIGLYCERIDES 81 mg/dL; VLDL CHOLESTEROL 16 mg/dL
== END 2022-10-05 09:11 | disposition home or self-care (01) ==
LOC: LAB.N 09:10
PROVIDERS: ATTEND Internal Medicine Cardiovascular Disease
DX: E78.5 Hyperlipidemia, unspecified (principal); E06.5 Other chronic thyroiditis; I48.21 Permanent atrial fibrillation; Z79.01 Long term (current) use of anticoagulants
CPT/HCPCS: 36415; 80053; 80061; 83721; 84443; 85025

== ENCOUNTER 2022-12-01 23:09 | Emergency (ER) | payer MEDICARE ==
--- OUTSIDE RECORDS SUMMARY | 2022-12-01 23:25 | EXTERNAL MEDICAL SUMMARY RPT | Continuity of Care Document ---
:1945 Author Organization [facility] Address [address] [place] [address] Phone Allergies No information. Encounters No information. Functional Status No information. Immunizations No information. Medications No information. Problems date description facility 2022-10-23 14:14 Other ventricular tachycardia [facility] Procedures No information. Results/Labs test date author facility value unit interpret ation Result panel 1 (unknown) (no (unknown) (unknown) (no value) (units (unk nown) date) unknown) (unknown) (no (unknown) (unknown) 1) Mildly enlarged (units (unknown) date) left ventricle with unknown) mildly to moderately reduced systolic (unknown) (no (unknown) (unknown) 10/23/22 (units (unkno wn) date) unknown) (unknown) (no (unknown) (unknown) [address] [place] [address] (units (unknown) date) unknown) (unknown) (no (unknown) (unknown) 2) Mildly enlarged (units (unknown) date) right ventricle unknown) with moderately reduced function. (unknown) (no (unknown) (unknown) 3 Very severe (units ( unknown) date) biatrial unknown) enlargement present. (unknown) (no (unknown) (unknown) 4) A patent (units (un known) date) foramen ovale is unknown) present. (unknown) (no (unknown) (unknown) 5) There is mild (units (unknown) date) to moderate mitral unknown) regurgitation. (unknown) (no (unknown) (unknown) 572 (units (unkno wn) date) unknown) (unknown) (no (unknown) (unknown) 6) No prior Echo (units (unknown) date) available for unknown) comparison. (unknown) (no (unknown) (unknown) sev ratio: 0.76 (units (unknown) date) unknown) (unknown) (no (unknown) (unknown) ADRIAN indexed to BSA (units (unknown) date) (cm2/m2): 1.5 unknown) (unknown) (no (unknown) (unknown) Accession Number: (units (unknown) date) [id number] unknown) (unknown) (no (unknown) (unknown) Age/Sex: 77 / F (units (unknown) date) Date of Service: unknown) (unknown) (no (unknown) (unknown) [place], [place] (units ( unknown) date) [id number] unknown) (unknown) (no (unknown) (unknown) Ao V2 VTI: 18.0 cm (units (unknown) date) ADRIAN(V,D): 2.9 cm2 unknown) (unknown) (no (unknown) (unknown) Ao V2 max: 97.9 (units (unknown) date) cm/sec LVOT Max unknown) Nahum: 76.6 cm/sec (unknown) (no (unknown) (unknown) Ao V2 mean: 73.3 (units (unknown) date) cm/sec LV V1 max unknown) P.3 mmHg (unknown) (no (unknown) (unknown) Ao max P.8 (units (unknown) date) mmHg LV V1 VTI: unknown) 13.6 cm (unknown) (no (unknown) (unknown) Ao mean P.3 (units (unknown) date) mmHg ADRIAN(I,D): 2.8 unknown) cm2 (unknown) (no (unknown) (unknown) Aortic Valve: The (units (unknown) date) aortic valve is unknown) normal in structure and function. There is (unknown) (no (unknown) (unknown) Atria: Both atria (units (unknown) date) are severely unknown) dilated. A patent foramen ovale is present. (unknown) (no (unknown) (unknown) : 1945 (units (unknown) date) Acct:[id number] unknown) (unknown) (no (unknown) (unknown) Doppler (units (unkno wn) date) Measurements + unknown) Calculations (unknown) (no (unknown) (unknown) E/E' lat: 5.6 (units ( unknown) date) unknown) (unknown) (no (unknown) (unknown) E/E' med: 12.1 (units (unknown) date) unknown) (unknown) (no (unknown) (unknown) E/e' average: 8.8 (units (unknown) date) unknown) (unknown) (no (unknown) (unknown) Echocardiography (units (unknown) date) Report unknown) (unknown) (no (unknown) (unknown) Electronically (units (unknown) date) signed by: Peggy unknown) Radu Peñaloza on 10/23/2022 (unknown) (no (unknown) (unknown) FS: 28.2 % asc (units (unknown) date) Aorta Diam: 3.3 cm unknown) (unknown) (no (unknown) (unknown) Great Vessels: The (units (unknown) date) aortic root is unknown) normal size. The dimensions of the (unknown) (no (unknown) (unknown) IVSd: 0.90 cm (units ( unknown) date) unknown) (unknown) (no (unknown) (unknown) Interpretation (units (unknown) date) Summary unknown) (unknown) (no (unknown) (unknown) [facility] (units (unknown) date) unknown) (unknown) (no (unknown) (unknown) LA A2 area: 48.6 (units (unknown) date) cm2 RA area: 40.6 unknown) cm2 (unknown) (no (unknown) (unknown) LA A4 area: 54.3 (units (unknown) date) cm2 RA vol: 167.8 unknown) ml (unknown) (no (unknown) (unknown) LA dimension: 5.0 (units (unknown) date) cm RA long axis: unknown) 8.3 cm (unknown) (no (unknown) (unknown) LA length (vol): (units (unknown) date) 8.7 cm RA : 92.5 unknown) ml/m2 (unknown) (no (unknown) (unknown) LA vol index: (units ( unknown) date) 141.9 ml/m2 unknown) (unknown) (no (unknown) (unknown) LA vol: 257.4 ml (units (unknown) date) IVC diam: 2.4 cm unknown) (unknown) (no (unknown) (unknown) LV macias. (units (unkno wn) date) diameter/BSA unknown) (cm/m2): 3.1 (unknown) (no (unknown) (unknown) LV sys. (units (unkno wn) date) diameter/BSA unknown) (cm/m2): 2.2 (unknown) (no (unknown) (unknown) LVIDd: 5.6 cm LVOT (units (unknown) date) diam: 2.2 cm unknown) (unknown) (no (unknown) (unknown) LVIDs: 4.0 cm Ao (units (unknown) date) root diam: 3.1 cm unknown) (unknown) (no (unknown) (unknown) LVPWd: 1.0 cm (units ( unknown) date) unknown) (unknown) (no (unknown) (unknown) Lat Peak E' Nahum: (units (unknown) date) 14.9 cm/sec unknown) (unknown) (no (unknown) (unknown) Left Ventricle: (units (unknown) date) The left ventricle unknown) is mildly dilated. There is normal left (unknown) (no (unknown) (unknown) Loc: ECHO (units (unkn own) date) unknown) (unknown) (no (unknown) (unknown) MMode/2D (units (unkno wn) date) Measurements + unknown) Calculations (unknown) (no (unknown) (unknown) MV A max nahum: 27.9 (units (unknown) date) cm/sec unknown) (unknown) (no (unknown) (unknown) MV E max nahum: 82.5 (units (unknown) date) cm/sec SV(LVOT): unknown) 50.5 ml (unknown) (no (unknown) (unknown) MV E/A: 3.0 (units (un known) date) unknown) (unknown) (no (unknown) (unknown) MV dec time: 0.14 (units (unknown) date) sec unknown) (unknown) (no (unknown) (unknown) Med Peak E' Nahum: (units (unknown) date) 6.8 cm/sec unknown) (unknown) (no (unknown) (unknown) Mitral Valve: (units ( unknown) date) There is mild unknown) mitral annular calcification. There is mild to (unknown) (no (unknown) (unknown) Ordering Provider: (units (unknown) date) Peggy Peñaloza MD unknown) (unknown) (no (unknown) (unknown) Patient: (units (unkno wn) date) Azra Nix MR#: unknown) [id number] (unknown) (no (unknown) (unknown) Pericardium/ (units (u nknown) date) Pleura There is no unknown) pericardial effusion. There is no pleural (unknown) (no (unknown) (unknown) Procedure: A (units (u nknown) date) two-dimensional unknown) transthoracic echocardiogram with color flow (unknown) (no (unknown) (unknown) Procedure: EC echo (units (unknown) date) doppler complete unknown) (unknown) (no (unknown) (unknown) Pulmonic Valve: (units (unknown) date) The pulmonic valve unknown) is normal in structure and function. (unknown) (no (unknown) (unknown) Reading (units (unkno wn) date) Physician:04:41 PM unknown) (unknown) (no (unknown) (unknown) Right Ventricle: (units (unknown) date) The right ventricle unknown) is mildly dilated. Right ventricular (unknown) (no (unknown) (unknown) Signed (units (unkno wn) date) unknown) (unknown) (no (unknown) (unknown) TAPSE: 0.88 cm (units (unknown) date) unknown) (unknown) (no (unknown) (unknown) There is mild (units ( unknown) date) pulmonic unknown) regurgitation. (unknown) (no (unknown) (unknown) There is mild (units ( unknown) date) tricuspid unknown) regurgitation. Pulmonary artery pressures can (unknown) (no (unknown) (unknown) Tricuspid Valve: (units (unknown) date) The tricuspid valve unknown) is normal in structure and function. (unknown) (no (unknown) (unknown) (units (unknown) date) unknown) ___ (unknown) (no (unknown) (unknown) and Doppler was (units (unknown) date) performed. The unknown) study quality was technically adequate. There (unknown) (no (unknown) (unknown) ascending aorta (units (unknown) date) are normal. The IVC unknown) is dilated (diameter is greater than 2.1 (unknown) (no (unknown) (unknown) atrial pressure of (units (unknown) date) 15 mm Hg. unknown) (unknown) (no (unknown) (unknown) cm) and it (units (unk nown) date) collapses less than unknown) 50% with a sniff. This suggests a high right (unknown) (no (unknown) (unknown) effusion. (units (unkn own) date) unknown) (unknown) (no (unknown) (unknown) estimated because (units (unknown) date) of the lack of a unknown) measurable TR jet velocity. (unknown) (no (unknown) (unknown) function (EF (units (u nknown) date) 40-45%). unknown) (unknown) (no (unknown) (unknown) is no prior (units (un known) date) echocardiogram unknown) noted for this patient. (unknown) (no (unknown) (unknown) mild to moderate (units (unknown) date) global hypokinesis unknown) of the left ventricle. (unknown) (no (unknown) (unknown) moderate mitral (units (unknown) date) regurgitation. unknown) (unknown) (no (unknown) (unknown) moderately (units (unk nown) date) reduced. The unknown) ejection fraction is estimated to be 40-45%. There is (unknown) (no (unknown) (unknown) no aortic valve (units (unknown) date) stenosis. No aortic unknown) regurgitation is present. (unknown) (no (unknown) (unknown) not be (units (unkno wn) date) unknown) (unknown) (no (unknown) (unknown) systolic function (units (unknown) date) is moderately unknown) reduced. (unknown) (no (unknown) (unknown) ventricular wall (units (unknown) date) thickness. Left unknown) ventricular systolic function is mild to Social History No information. Vital Signs No information.
[2022-12-01 23:38] LABS: BASOPHILS # (AUTO) 0.1 10^3/uL (0.0-0.1); BASOPHILS % (AUTO) 0.9 %; EOSINOPHILS # (AUTO) 0.1 10^3/uL (0.0-0.7); EOSINOPHILS % (AUTO) 1.4 %; HCT - HEMATOCRIT 38.7 % (37.0-47.0); HGB - HEMOGLOBIN 13.2 g/dL (12.0-16.0); LYMPHOCYTES # (AUTO) 2.3 10^3/uL (1.5-3.5); LYMPHOCYTES % (AUTO) 34.8 %; MEAN CORPUSCULAR HEMOGLOBIN 32.6 pg (27.0-31.0); MEAN CORPUSCULAR HGB CONC 34.1 g/dL (32.0-36.0); MEAN CORPUSCULAR VOLUME 95.6 fL (81.0-99.0); MEAN PLATELET VOLUME 10.5 fL (7.9-10.8); MONOCYTES # (AUTO) 0.6 10^3/uL (0.0-1.0); NEUTROPHILS # (AUTO) 3.5 10^3/uL (1.5-6.6); NEUTROPHILS % (AUTO) 53.6 %; PLT - PLATELET COUNT 163 10^3/uL (130-450); RED BLOOD COUNT 4.05 10^6/uL (4.20-5.40); RED CELL DISTRIBUTION WIDTH 11.5 % (12.0-15.0); WHITE BLOOD COUNT 6.5 x10^3/uL (4.8-10.8)
[2022-12-02 00:02] LABS: ALBUMIN 4.3 g/dL (3.2-5.5); ALBUMIN/GLOBULIN RATIO 1.4 (1.0-2.2); BILIRUBIN,TOTAL 0.6 mg/dL (0.2-1.0); CALCIUM 11.1 mg/dL (8.5-10.3); CREATININE 1.1 mg/dL (0.4-1.0); POTASSIUM 3.8 mmol/L (3.5-5.0); TOTAL PROTEIN 7.4 g/dL (6.7-8.2)
--- NOTE | 2022-12-02 00:18 | ED Physician Documentation ---
History of Present Illness - Stated complaint Stated Complaint: HBP,DIZZY,FATIGUE - Chief complaint Chief Complaint: Cardiac - History obtained from History obtained from: Patient - Additonal information Additional information: 77-year-old woman presents withIntermittent dizziness, fatigue and nausea as well as decreased appetite over the past several days associated with multiple high blood pressure readings. Patient states that she had a stressful experience with a friend on vacation in [place] about a week ago and was speaking with another friend on a walk about it tonight, felt stressed and took her blood pressure. Finding it to be elevated she came to the ED for evaluation. denies vomiting, syncope, AMS, chest pain, soa. Review of Systems Cardiac: reports: Palpitations. denies: Chest pain / pressure Respiratory: denies: Dyspnea GI: reports: Nausea. denies: Vomiting Neurologic: reports: Other (dizzy). 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 - Present Medications Home Medications: Ambulatory Orders Medication Instructions Recorded Confirmed Calcium Carbonate [Calcium] 500 mg PO DAILY 05/27/15 11/18/17 Metoprolol Tartrate 50 mg PO BID 05/27/15 11/18/17 Simvastatin 40 mg PO QPM 05/27/15 11/18/17 Calcium Carbonate/Vitamin D3 1 cap PO DAILY 11/18/17 11/18/17 [Calcium 600-Vit D3 400 Tablet] Levothyroxine [Synthroid] 125 mcg PO QDAC 11/18/17 11/18/17 Rivaroxaban [Xarelto] 20 mg PO DAILY 11/18/17 11/18/17 calcitrioL [Calcitriol] 0.25 mcg PO TID 11/18/17 11/18/17 hydrOXYzine pamoate [Hydroxyzine 25 mg PO QID PRN #20 cap 12/02/22 Pamoate] - Allergies Allergies/Adverse Reactions: Allergies Allergy/AdvReac Type Severity Reaction Status Date / Time ibuprofen AdvReac Unknown Verified 12/01/22 23:14 procaine HCl * AdvReac Anxiety Verified 12/01/22 23:14 [From Novocain] - Social History Does the pt smoke?: No Smoking Status: Never smoker Does the pt drink ETOH?: Yes Does the pt have substance abuse?: No - Immunizations Immunizations are current?: Yes PD ED PE NORMAL - Vitals Vital signs reviewed: Yes - General General: Alert and oriented X 3, No acute distress, Well developed/nourished - HEENT HEENT: Atraumatic, PERRL, EOMI - Neck Neck: Supple, no meningeal sign - Cardiac Cardiac: Other (Regular rate, irregular rhythm) - Respiratory Respiratory: No respiratory distress, Clear bilaterally - Abdomen Abdomen: Non tender, Non distended Results - Vitals Vitals: Vital Signs - 24 hr 12/01/22 12/02/22 12/02/22 23:14 00:25 00:51 Temperature 36.5 C Heart Rate 60 77 81 Respiratory 16 14 24 Rate Blood Pressure 200/120 H 165/100 H 152/82 H O2 Saturation 100 99 98 12/02/22 01:37 Temperature Heart Rate 71 Respiratory 14 Rate Blood Pressure 130/82 H O2 Saturation 98 Oxygen O2 Source Room air - EKG (time done) 0018 Rate: Rate (enter#) (71) Rhythm: Atrial fibrillation - Labs Labs: Laboratory Tests 12/01/22 12/01/22 12/01/22 23:32 23:32 23:32 WBC 6.5 RBC 4.05 L Hgb 13.2 Hct 38.7 MCV 95.6 MCH 32.6 H MCHC 34.1 RDW 11.5 L Plt Count 163 MPV 10.5 Neut # (Auto) 3.5 Lymph # (Auto) 2.3 Quay # (Auto) 0.6 Eos # (Auto) 0.1 Baso # (Auto) 0.1 Absolute Nucleated RBC 0.00 Nucleated RBC % 0.0 Sodium 139 Potassium 3.8 Chloride 99 L Carbon Dioxide 31 Anion Gap 9.0 BUN 29 H Creatinine 1.1 H Estimated GFR (MDRD) 48 L Glucose 101 H Calcium 11.1 H Total Bilirubin 0.6 AST 39 ALT 37 Alkaline Phosphatase 58 Troponin I High Sens 22.5 H* Total Protein 7.4 Albumin 4.3 Globulin 3.1 Albumin/Globulin Ratio 1.4 Lipase 35 12/02/22 00:45 WBC RBC Hgb Hct MCV MCH MCHC RDW Plt Count MPV Neut # (Auto) Lymph # (Auto) Quay # (Auto) Eos # (Auto) Baso # (Auto) Absolute Nucleated RBC Nucleated RBC % Sodium Potassium Chloride Carbon Dioxide Anion Gap BUN Creatinine Estimated GFR (MDRD) Glucose Calcium Total Bilirubin AST ALT Alkaline Phosphatase Troponin I High Sens 21.5 H* Total Protein Albumin Globulin Albumin/Globulin Ratio Lipase PD Medical Decision Making - ED course ED course: 77-year-old woman presented with high blood pressure, dizziness and fatigue as well as subjective sensation of stress.After exam and counseling, patient's blood pressure came down on its own. Her EKG was remarkable for atrial fibrillation with multiple PVCs which she says has been consistent with the report from her window/distribution clerk on prior EKGs.Your lab work included CBC and abdominal panel as well as troponin which was mildly elevated at 22.5, remaining stable on repeat. Chest x-ray was ordered and independently interpreted by an outside radiologist. The interpretation was cardiomegaly versus pericardial eff usion. Patient states she just had an echocardiogram done and was not told she has an effusion. I discussed with the patient that she will need to follow-up with her window/distribution clerk and PCP. She has no symptoms at present. Return precautions discussed. Departure - Departure Disposition: Home, Self Care Clinical Impression: Hypertension, Elevated troponin, Cardiomegaly Condition: Stable Instructions: Hypertension Control, Stress [place] [facility] Follow-Up: Peggy Peñaloza MD [Physician No Access] - Prescriptions: hydrOXYzine pamoate [Hydroxyzine Pamoate] 25 mg PO QID PRN #20 cap PRN Reason: Anxiety Comments: You were seen in the emergency department for Medical evaluation. Your EKG showed afib with PVCs and your labwork showed some mild, stable inflammation on bloodwork for the heart. Please schedule an appointment for follow up with your window/distribution clerk as well as CHUCK Shaffer. A prescription for Atarax, a stress relieving medication, was sent electronically to [facility] in [place].
--- NOTE | 2022-12-02 00:58 | XRAY Report ---
PROCEDURE: Chest 1 View X-Ray INDICATIONS: Chest Pain TECHNIQUE: One view of the chest was acquired. COMPARISON: None. FINDINGS: Surgical changes and devices: None. Lungs and pleura: No pleural effusions or pneumothorax. Lungs are clear. Mediastinum: The heart contours appear enlarged. Bones and chest wall: No suspicious bony lesions. Overlying soft tissues appear unremarkable. IMPRESSION: 1. Enlargement of the cardiac contour likely representing hepatomegaly. However, a pericardial effusi on cannot be excluded. Reviewed by: Pino Mackenzie MD on 12/02/2022 12:22 AM [facility] Approved by: Pino Mackenzie MD on 12/02/2022 12:22 AM [facility] Station ID: [id number]
[2022-12-02 01:37] VITALS: BP 130/82
== END 2022-12-02 01:57 | disposition home or self-care (01) ==
LOC: ED 23:09
DX: I51.7 Cardiomegaly (principal); R77.8 Other specified abnormalities of plasma proteins; I10 Essential (primary) hypertension; I48.91 Unspecified atrial fibrillation; Z79.01 Long term (current) use of anticoagulants
CPT/HCPCS: 36415; 80053; 83690; 84484; 85025; 93005; 99284

== ENCOUNTER 2022-12-15 15:01 | Outpatient (CLI) | payer MEDICARE ==
--- NOTE | 2022-12-16 11:27 | Mammography Report ---
BILATERAL DIGITAL SCREENING MAMMOGRAM 3D/2D: 12/15/2022 CLINICAL: Routine screening. Comparison is made to exams dated: 04/02/2021 mammogram, 11/28/2019 mammogram, 11/11/2018 mammogram, 1 01/04/2016 mammogram, 10/14/2016 mammogram, and 10/29/2014 mammogram - [facility]. Both breasts are almost entirely fatty (category a/<25% glandular tissue). There is a stable benign focal asymmetry in the right breast. No significant masses, calcifications, or other findings are seen in either breast. There has been no significant interval change. IMPRESSION: BENIGN There is no mammographic evidence of malignancy. A 1 year screening mammogram is recommended. Based on the Tyrer Cuzick model (a risk assessment model) the patients lifetime risk is 1.9% and her 10 year risk is 0.0%. According to the ACR, ACS, and NCCN guidelines, an annual breast MRI exam charbel g with mammogram is recommended if the patients lifetime risk is 20% or greater. This exam was interpreted at Station ID: [id number]. NOTE: For mammograms, a report in lay terms will be sent to the patient. Approximately 15% of breast malignancies will not be visualized mammographically. In the management of a palpable breast mass, a negative mammogram must not discourage biopsy of a clinically suspicious lesion. Electronically Signed By: Yonatan artis/deedeerad:12/16/2022 08:07:27 ACR BI-RADS Category 2: Benign Finding(s) 3342F PARENCHYMAL PATTERN: (F) - The breast(s) demonstrate(s) diffuse fatty replacement. BI-RADS CATEGORY: (2) - 2 RECOMMENDATION: (ANNUAL) - Recommend routine annual screening mammography. [id number] 1 year screening LATERALITY: (B)
== END 2022-12-15 15:02 | disposition home or self-care (01) ==
LOC: DI 15:01
DX: Z12.31 Encounter for screening mammogram for malignant neoplasm of breast (principal)

== ENCOUNTER 2022-12-28 12:45 | Outpatient (CLI) | payer MEDICARE ==
[2022-12-28 13:10] LABS: BASOPHILS # (AUTO) 0.1 10^3/uL (0.0-0.1); BASOPHILS % (AUTO) 1.4 %; EOSINOPHILS # (AUTO) 0.1 10^3/uL (0.0-0.7); EOSINOPHILS % (AUTO) 1.6 %; HCT - HEMATOCRIT 39.2 % (37.0-47.0); HGB - HEMOGLOBIN 13.1 g/dL (12.0-16.0); LYMPHOCYTES # (AUTO) 1.6 10^3/uL (1.5-3.5); LYMPHOCYTES % (AUTO) 28.7 %; MEAN CORPUSCULAR HEMOGLOBIN 32.4 pg (27.0-31.0); MEAN CORPUSCULAR HGB CONC 33.4 g/dL (32.0-36.0); MEAN PLATELET VOLUME 10.3 fL (7.9-10.8); MONOCYTES # (AUTO) 0.6 10^3/uL (0.0-1.0); MONOCYTES % (AUTO) 9.9 %; NEUTROPHILS # (AUTO) 3.3 10^3/uL (1.5-6.6); NEUTROPHILS % (AUTO) 58.2 %; PLT - PLATELET COUNT 187 10^3/uL (130-450); RED BLOOD COUNT 4.04 10^6/uL (4.20-5.40); WHITE BLOOD COUNT 5.6 x10^3/uL (4.8-10.8)
[2022-12-28 13:55] LABS: THYROID STIMULATING HORMONE 3.52 uIU/mL (0.34-5.60)
== END 2022-12-28 12:46 | disposition home or self-care (01) ==
LOC: LAB 12:45
PROVIDERS: ATTEND Physician Assistant Medical
DX: E06.5 Other chronic thyroiditis (principal); M19.049 Primary osteoarthritis, unspecified hand
CPT/HCPCS: 36415; 84443; 85025

== ENCOUNTER 2023-04-05 16:51 | Emergency (ER) | payer MEDICARE ==
--- OUTSIDE RECORDS SUMMARY | 2023-04-05 17:22 | EXTERNAL MEDICAL SUMMARY RPT | Continuity of Care Document ---
Author Name Unknown Address [address] [place] [address] Phone Organization [facility] Address [address] [place] [address] Phone Problems date description facility 2023-02-09 12:22 Cardiomyopathy, unspecified [facility] Results/Labs test date author facility value unit interpretation Result panel 1 (unknown) (no date) (unknown) (unknown) (no value) (units unknown) (unknown) (unknown) (no date) (unknown) (unknown) +---------+ 29 9-1300 +--------- (units unknown) (unknown) (unknown) (no date) (unknown) (unknown) +---------+ Ho spital +--------- (units unknown) (unknown) (unknown) (no date) (unknown) (unknown) + ------- (units unknown) (unknown) (unknown) (no date) (unknown) (unknown) 02/09/23 (units unknown) (unknown) (unknown) (no date) (unknown) (unknown) 1) Mildly enla rged left ventricle with mildly reduced systolic function (EF (units unknown) (unknown) (unknown) (no date) (unknown) (unknown) [address] (un its unknown) (unknown) (unknown) (no date) (unknown) (unknown) 2) Normal size d right ventricle with moderately reduced function. (units unknown) (unknown) (unknown) (no date) (unknown) (unknown) 3 Very severe left atrial enlargement present. The right atrium is severely (units unknown) (unknown) (unknown) (no date) (unknown) (unknown) 4) A patent fo ramen ovale is present. (units unknown) (unknown) (unknown) (no date) (unknown) (unknown) 45-50%). (units unknown) (unknown) (unknown) (no date) (unknown) (unknown) 5) There is mi ld to moderate mitral regurgitation. (units unknown) (unknown) (unknown) (no date) (unknown) (unknown) 572 (units unknown) (unknown) (unknown) (no date) (unknown) (unknown) 6) Compared to the Echo done 10/23/2022, LVEF has improved slightly from 40-45% (units unknown) (unknown) (unknown) (no date) (unknown) (unknown) : : [address] : : (units unknown) (unknown) (unknown) (no date) (unknown) (unknown) : : [address] : : (units unknown) (unknown) (unknown) (no date) (unknown) (unknown) : : [place] : : (units unknown) (unknown) (unknown) (no date) (unknown) (unknown) : : Phone: [phone] : (units unknown) (unknown) (unknown) (no date) (unknown) (unknown) : Gender: Female BSA: 1.8 m2 : (units unknown) (unknown) (unknown) (no date) (unknown) (unknown) :BHRIGU Perfor med By: Tatyana Sutton : (units unknown) (unknown) (unknown) (no date) (unknown) (unknown) :: [birth year] Age: 77 yrs BP: 133/67 mmHg: (units unknown) (unknown) (unknown) (no date) (unknown) (unknown) :[facility] ReadingLocation: Weight: 155 lb : (units unknown) (unknown) (unknown) (no date) (unknown) (unknown) :Name: DANIEL MOODY Study Date: 02/09/2023 Height: 67 in : (units unknown) (unknown) (unknown) (no date) (unknown) (unknown) :Ordering Phys ician: MARIZA, : (units unknown) (unknown) (unknown) (no date) (unknown) (unknown) :Reason For St udy: CARDIOMYOPATHY : (units unknown) (unknown) (unknown) (no date) (unknown) (unknown) :Referring: CHUCK REHMAN, SRINIVASU : (units unknown) (unknown) (unknown) (no date) (unknown) (unknown) sev ratio: 0.74 ( units unknown) (unknown) (unknown) (no date) (unknown) (unknown) ADRIAN indexed to BSA (cm2/m2): 1.5 (units unknown) (unknown) (unknown) (no date) (unknown) (unknown) Accession Numb er: [id number] (units unknown) (unknown) (unknown) (no date) (unknown) (unknown) Age/Sex: 77 / F Date of Service: (units unknown) (unknown) (unknown) (no date) (unknown) (unknown) [place] [address] (units unknown) (unknown) (unknown) (no date) (unknown) (unknown) Ao V2 VTI: 22. 7 cm ADRIAN(V,D): 2.9 cm2 (units unknown) (unknown) (unknown) (no date) (unknown) (unknown) Ao V2 max: 103 .8 cm/sec LVOT Max Nahum: 84.5 cm/sec (units unknown) (unknown) (unknown) (no date) (unknown) (unknown) Ao V2 mean: 76 .4 cm/sec LV V1 max P.9 mmHg (units unknown) (unknown) (unknown) (no date) (unknown) (unknown) Ao max P.3 mmHg LV V1 VTI: 16.8 cm (units unknown) (unknown) (unknown) (no date) (unknown) (unknown) Ao mean P. 6 mmHg ADRIAN(I,D): 2.7 cm2 (units unknown) (unknown) (unknown) (no date) (unknown) (unknown) Aortic Valve: The aortic valve is normal in structure and function. The (units unknown) (unknown) (unknown) (no date) (unknown) (unknown) Atria: The lef t atrium is severely dilated. The right atrium is severely (units unknown) (unknown) (unknown) (no date) (unknown) (unknown) Comparison is made with the echocardiogram of 10/23/2022. The patient had (units unknown) (unknown) (unknown) (no date) (unknown) (unknown) : 6 Acct:[id number] (units unknown) (unknown) (unknown) (no date) (unknown) (unknown) Doppler Measur ements + Calculations (units unknown) (unknown) (unknown) (no date) (unknown) (unknown) E/E' lat: 7.2 (units unknown) (unknown) (unknown) (no date) (unknown) (unknown) E/E' med: 10.6 PA mean P.6 mmHg (units unknown) (unknown) (unknown) (no date) (unknown) (unknown) E/e' average: 8.9 (u nits unknown) (unknown) (unknown) (no date) (unknown) (unknown) Echocardiogram Repor t (units unknown) (unknown) (unknown) (no date) (unknown) (unknown) Echocardiograp hy Report (units unknown) (unknown) (unknown) (no date) (unknown) (unknown) (units unknown) (unknown) (unknown) (no date) (unknown) (unknown) FS: 26.2 % asc Aorta Diam: 3.4 cm (units unknown) (unknown) (unknown) (no date) (unknown) (unknown) Great Vessels: The aortic root is normal size. The dimensions of the (units unknown) (unknown) (unknown) (no date) (unknown) (unknown) IVSd: 0.84 cm Ao Arch Diam (Prox Trans): 2.5 cm (units unknown) (unknown) (unknown) (no date) (unknown) (unknown) Interpretation Summary (units unknown) (unknown) (unknown) (no date) (unknown) (unknown) [facility] (uni ts unknown) (unknown) (unknown) (no date) (unknown) (unknown) [place] (units unknown) (unknown) (unknown) (no date) (unknown) (unknown) LA A2 area: 44 .7 cm2 RA long axis: 7.5 cm (units unknown) (unknown) (unknown) (no date) (unknown) (unknown) LA A4 area: 44 .9 cm2 RA area: 32.1 cm2 (units unknown) (unknown) (unknown) (no date) (unknown) (unknown) LA length (vol ): 8.2 cm RA vol: 117.5 ml (units unknown) (unknown) (unknown) (no date) (unknown) (unknown) LA vol index: 114.0 ml/m2 IVC diam: 1.5 cm (units unknown) (unknown) (unknown) (no date) (unknown) (unknown) LA vol: 206.8 ml RA : 64.8 ml/m2 (units unknown) (unknown) (unknown) (no date) (unknown) (unknown) LV macias. diame ter/BSA (cm/m2): 3.2 (units unknown) (unknown) (unknown) (no date) (unknown) (unknown) LV sys. diamet er/BSA (cm/m2): 2.3 (units unknown) (unknown) (unknown) (no date) (unknown) (unknown) LVIDd: 5.7 cm LVOT diam: 2.1 cm (units unknown) (unknown) (unknown) (no date) (unknown) (unknown) LVIDs: 4.2 cm Ao root diam: 3.3 cm (units unknown) (unknown) (unknown) (no date) (unknown) (unknown) LVPWd: 0.74 cm (unit s unknown) (unknown) (unknown) (no date) (unknown) (unknown) Lat Peak E' Ve l: 15.0 cm/sec PA pr(Accel): 29.3 mmHg (units unknown) (unknown) (unknown) (no date) (unknown) (unknown) Left Ventricle : The left ventricle is mildly dilated. There is normal left (units unknown) (unknown) (unknown) (no date) (unknown) (unknown) Loc: ECHO (units unknown) (unknown) (unknown) (no date) (unknown) (unknown) MMode/2D Measu rements + Calculations (units unknown) (unknown) (unknown) (no date) (unknown) (unknown) MV A max nahum: 24.5 cm/sec TR max P.9 mmHg (units unknown) (unknown) (unknown) (no date) (unknown) (unknown) MV E max nahum: 107.8 cm/sec TR max nahum: 249.3 cm/sec (units unknown) (unknown) (unknown) (no date) (unknown) (unknown) MV E/A: 4.4 PA V2 max: 84.6 cm/sec (units unknown) (unknown) (unknown) (no date) (unknown) (unknown) MV dec time: 0.13 se c (units unknown) (unknown) (unknown) (no date) (unknown) (unknown) Med Peak E' Ve l: 10.2 cm/sec PA V2 mean: 59.9 cm/sec (units unknown) (unknown) (unknown) (no date) (unknown) (unknown) Mitral Valve: There is mild mitral annular calcification. The mitral valve (units unknown) (unknown) (unknown) (no date) (unknown) (unknown) Ordering Provi andreina: Peggy Peñaloza MD (units unknown) (unknown) (unknown) (no date) (unknown) (unknown) Patient: Daniel Moody MR#: [id number] (units unknown) (unknown) (unknown) (no date) (unknown) (unknown) Pericardium/ P leura There is no pericardial effusion. There is no pleural (units unknown) (unknown) (unknown) (no date) (unknown) (unknown) Procedure: A two-dimensional transthoracic echocardiogram with color flow (units unknown) (unknown) (unknown) (no date) (unknown) (unknown) Procedure: EC echo doppler complete (units unknown) (unknown) (unknown) (no date) (unknown) (unknown) Pulmonic Valve : The pulmonic valve leaflets are thin and pliable; valve (units unknown) (unknown) (unknown) (no date) (unknown) (unknown) RVD1 (basal): 3.6 cm (units unknown) (unknown) (unknown) (no date) (unknown) (unknown) RVD2 (mid): 3.6 cm ( units unknown) (unknown) (unknown) (no date) (unknown) (unknown) Reading Physician:02:53 PM (units unknown) (unknown) (unknown) (no date) (unknown) (unknown) Right Ventricl e: The right ventricle is normal size. Right ventricular (units unknown) (unknown) (unknown) (no date) (unknown) (unknown) SV(LVOT): 60.5 ml (u nits unknown) (unknown) (unknown) (no date) (unknown) (unknown) Signed (units unknown) (unknown) (unknown) (no date) (unknown) (unknown) TAPSE: 1.1 cm (units unknown) (unknown) (unknown) (no date) (unknown) (unknown) There is mild global hypokinesis of the left ventricle. (units unknown) (unknown) (unknown) (no date) (unknown) (unknown) There is mild tricuspid regurgitation. The right ventricular systolic pressure (units unknown) (unknown) (unknown) (no date) (unknown) (unknown) Tricuspid Valv e: The tricuspid valve is normal in structure and function. (units unknown) (unknown) (unknown) (no date) (unknown) (unknown) (units unknown) (unknown) (unknown) (no date) (unknown) (unknown) and Doppler wa s performed. The study quality was technically adequate. (units unknown) (unknown) (unknown) (no date) (unknown) (unknown) aortic valve i s trileaflet. The aortic valve opens well. There is no aortic (units unknown) (unknown) (unknown) (no date) (unknown) (unknown) ascending aort a are normal. The IVC is of normal diameter and collapses (units unknown) (unknown) (unknown) (no date) (unknown) (unknown) dilated. A pat ent foramen ovale is present. (units unknown) (unknown) (unknown) (no date) (unknown) (unknown) dilated. (units unknown) (unknown) (unknown) (no date) (unknown) (unknown) effusion. (units unknown) (unknown) (unknown) (no date) (unknown) (unknown) exam. The hear t rate ranged between 53-78 bpm during the study. (units unknown) (unknown) (unknown) (no date) (unknown) (unknown) greater than 5 0% with a sniff. This suggests a low right atrial pressure of 3 (units unknown) (unknown) (unknown) (no date) (unknown) (unknown) is estimated t o be at least 28 mmHg based on an estimated right atrial (units unknown) (unknown) (unknown) (no date) (unknown) (unknown) leaflets appea r mildly thickened, but open well. There is mild to moderate (units unknown) (unknown) (unknown) (no date) (unknown) (unknown) mitral regurgitation . (units unknown) (unknown) (unknown) (no date) (unknown) (unknown) mm Hg. (units unknown) (unknown) (unknown) (no date) (unknown) (unknown) motion is norm al. There is mild pulmonic regurgitation. (units unknown) (unknown) (unknown) (no date) (unknown) (unknown) occasional PVC s during the exam. The patient had occasional PACs during the (units unknown) (unknown) (unknown) (no date) (unknown) (unknown) pressure of 3 mm Hg. (units unknown) (unknown) (unknown) (no date) (unknown) (unknown) systolic funct ion is moderately reduced. (units unknown) (unknown) (unknown) (no date) (unknown) (unknown) to 45-50% on t his study. (units unknown) (unknown) (unknown) (no date) (unknown) (unknown) valve stenosis . There is trace aortic regurgitation. (units unknown) (unknown) (unknown) (no date) (unknown) (unknown) ventricular wa ll thickness. The ejection fraction is estimated to be 45-50%. (units unknown) (unknown)
--- NOTE | 2023-04-05 18:46 | CT Report ---
PROCEDURE: HEAD WO INDICATIONS: fall yesterday, pain, on eliquis TECHNIQUE: Noncontrast 4.5 mm thick angled axial sections acquired from the foramen magnum to the vertex. For r adiation dose reduction, the following was used: automated exposure control, adjustment of mA and/or kV according to patient size. COMPARISON: None. FINDINGS: Image quality: Excellent. CSF spaces: Basal cisterns are patent. No extra-axial fluid collections. Ventricles are normal in size and shape. Brain: No midline shift. No intracranial masses or hemorrhage. Meyer-white matter interface is norm al. Skull and face: Calvarium and visualized facial bones are intact, without suspicious lesions. Sinuses: Moderate left sphenoid sinus mucosal thickening. Mild bilateral maxillary sinus because of t hickening. Mastoids are clear. IMPRESSION: 1. No acute intracranial abnormality. 2. Sinus disease. Reviewed by: La Mena MD on 04/05/2023 5:45 PM [facility] Approved by: La Mena MD on 04/05/2023 5:45 PM [facility] Station ID: [id number]
--- NOTE | 2023-04-05 18:48 | CT Report ---
PROCEDURE: MAXILLOFACIAL WO INDICATIONS: fall yesterday, pain, on eliquis TECHNIQUE: Noncontrast 1.5 mm thick axial images acquired from the mandible through the frontal sinuses, with co snehal and sagittal reformatting. For radiation dose reduction, the following was used: automated ex posure control, adjustment of mA and/or kV according to patient size. COMPARISON: None. FINDINGS: Image quality: Excellent. Bones and teeth: Orbital mckeon are intact. Sinus mckeon show no fracture or deformity. There is a mi ldly displaced right nasal bone fracture. Visualized portions of the mandible demonstrate no fracture s or subluxation. Zygomatic arches are intact. Pterygoid plates are intact. Visualized portions of the skull base and auditory canals are intact. Sinuses: Moderate mucosal thickening involving the bilateral ethmoid, left sphenoid, and bilateral ma xillary sinuses. Mastoids are clear. Mastoid air cells are aerated. Soft tissues: No edema, masses, or fluid collections. No enlarged lymph nodes. No soft tissue lace rations or debris. Vascular: Visualized vascular structures appear normal in the absence of contrast. Bony vascular fo ramina and canals are intact. IMPRESSION: 1. Right nasal bone fracture. 2. Sinus disease. Reviewed by: La Mena MD on 04/05/2023 5:46 PM [facility] Approved by: La Mena MD on 04/05/2023 5:46 PM [id number] Station ID: [id number]
--- NOTE | 2023-04-05 18:49 | CT Report ---
PROCEDURE: CERVICAL SPINE WO INDICATIONS: fall yesterday, pain, on eliquis TECHNIQUE: Noncontrast 3 mm thick sections acquired from the skull base to the T4 level. Sagittal and coronal r eformats were then constructed. For radiation dose reduction, the following was used: automated exp osure control, adjustment of mA and/or kV according to patient size. COMPARISON: None. FINDINGS: Image quality: Excellent. Bones: No fractures or dislocations. Visualized superior ribs are intact. Multilevel degenerative disc and facet disease. Soft tissues: Prevertebral soft tissues are normal in thickness. No paravertebral hematomas. No ap ical pneumothoraces. IMPRESSION: No acute fracture. No osseous lesion. If symptoms and/or clinical suspicion for pathology continue, f urther assessment with MRI or bone scan is recommended for further assessment. Reviewed by: La Mena MD on 04/05/2023 5:48 PM [email or web address] Approved by: La Mena MD on 04/05/2023 5:48 PM [facility] Station ID: [id number]
--- NOTE | 2023-04-05 18:51 | CT Report ---
PROCEDURE: CHEST WO INDICATIONS: fall yesterday, pain, on eliquis TECHNIQUE: Noncontrast 1mm axial images were acquired from the pulmonary apices to the posterior costophrenic an gles. Axial 5 mm soft tissue kernel reconstructions were performed as well as 8 mm axial MIP and cor onal and sagittal 5 mm reformations. For radiation dose reduction, the following was used: automate d exposure control, adjustment of mA and/or kV according to patient size. COMPARISON: None FINDINGS: Image quality: Excellent. Lungs and pleura: No consolidation. No pleural effusions. No pneumothorax. No suspicious pulmonary n odules which require follow up. Calcified granuloma. Mediastinum: Heart size is enlarged. No pericardial effusions. No mediastinal adenopathy by size crit eria. No large vessel abnormality. One vessel coronary artery calcification. Chest wall and lower neck: Prior left thyroid lobectomy. No axillary or supraclavicular adenopathy by size. Bones: Anterior right fourth through sixth rib fractures, mildly displaced. Upper Abdomen: Focal calcification with associated defect along the lateral margin of the spleen, pro bably a sequela of remote trauma. IMPRESSION: Anterior right fourth through sixth rib fractures, which are mildly displaced. No pneumothorax or con tusion. Reviewed by: Lamberto Young on 04/05/2023 5:49 PM DONALD Approved by: Lamberto Young on 04/05/2023 5:49 PM [id number] Station ID: [id number]
[2023-04-05] MEDS ORDERED: MOLNUPIRAVIR PREPACK PO STA (19:07)
--- NOTE | 2023-04-05 19:10 | ED Physician Documentation ---
History of Present Illness - Stated complaint Stated Complaint: FALL/CHEST PAIN - Chief complaint Chief Complaint: Trauma Ch/Bk - History obtained from History obtained from: Patient, Family - History of Present Illness Timing: Yesterday Pain level max: 2 Pain level now: 2 - Additonal information Additional information: Patient is a 77-year-old female who presents to the emergency department stating that she fell yesterday at home and injured her face and chest. She states that she has been coughing for the past 2 days had a positive COVID test yesterday. She states she was nauseated as well. She had a coughing episode felt nauseated and tried to get up and walk to the chair when she fell to the ground. Unclear if she had a syncopal event or not. She did not come to the emergency department yesterday. She came today when she had chest wall pain. She is still having mild coughing. No fevers. No chills. No loss of consciousness. No vomiting. No seizure activity. 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 - Present Medications Home Medications: Ambulatory Orders Medication Instructions Recorded Confirmed Calcium Carbonate [Calcium] 500 mg PO DAILY 05/27/15 11/18/17 Metoprolol Tartrate 50 mg PO BID 05/27/15 11/18/17 Simvastatin 40 mg PO QPM 05/27/15 11/18/17 Calcium Carbonate/Vitamin D3 1 cap PO DAILY 11/18/17 11/18/17 [Calcium 600-Vit D3 400 Tablet] Levothyroxine [Synthroid] 125 mcg PO QDAC 11/18/17 11/18/17 Rivaroxaban [Xarelto] 20 mg PO DAILY 11/18/17 11/18/17 calcitrioL [Calcitriol] 0.25 mcg PO TID 11/18/17 11/18/17 hydrOXYzine pamoate [Hydroxyzine 25 mg PO QID PRN #20 cap 12/02/22 Pamoate] - Allergies Allergies/Adverse Reactions: Allergies Allergy/AdvReac Type Severity Reaction Status Date / Time ibuprofen AdvReac Unknown Verified 12/01/22 23:14 procaine HCl * AdvReac Anxiety Verified 12/01/22 23:14 [From Novocain] - Social History Does the pt smoke?: No Smoking Status: Never smoker Does the pt drink ETOH?: Yes Does the pt have substance abuse?: No - Immunizations Immunizations are current?: Yes - POLST Patient has POLST: No PD ED PE NORMAL - Vitals Vital signs reviewed: Yes - General General: Alert and oriented X 3, No acute distress - HEENT HEENT: PERRL, EOMI, Moist mucous membranes, Other (There is bruising over the face, periorbital ecchymosis on both eyes. Mild tenderness over the nose.) - Neck Neck: Supple, no meningeal sign, No bony TTP - Cardiac Cardiac: RRR, Strong equal pulses - Respiratory Respiratory: No respiratory distress, Clear bilaterally, Other (mild TTP over the left anterior chest wall. No crepitus. No ecchymosis.) - Abdomen Abdomen: Soft, Non tender, Non distended - Back Back: No CVA TTP, No spinal TTP - Derm Derm: Warm and dry, No rash - Extremities Extremities: No edema, No calf tenderness / cord - Neuro Neuro: Alert and oriented X 3, heel packer 2-12 intact, No motor deficit, No sensory deficit, Normal speech Eye Opening: Spontaneous Motor: Obeys Commands Verbal: Oriented GCS Score: 15 - Psych Psych: Normal mood, Normal affect Results - Vitals Vitals: Vital Signs - 24 hr 04/05/23 04/05/23 04/05/23 16:59 17:44 18:04 Temperature 36.1 C L Heart Rate 82 71 76 Respiratory 16 16 16 Rate Blood Pressure 150/79 H 153/80 H 140/70 H O2 Saturation 99 98 94 04/05/23 19:14 Temperature Heart Rate 87 Respiratory 15 Rate Blood Pressure 141/87 H O2 Saturation 96 Oxygen O2 Source Room air - Rads (name of study) CT head Relevant Findings:: Final report received, See rad report CT maxillofacial Relevant Findings:: Final report received, See rad report Ct cspine Relevant Findings:: Final report received, See rad report CT chest Relevant Findings:: Final report received, See rad report PD Medical Decision Making - ED course Complexity details: reviewed results, re-evaluated patient, considered differential, d/w patient ED course: CT scans reveal a nasal bone fracture as well as right-sided rib fractures, ribs 4 through 6. No hemothorax or pneumothorax. Patient does not have any pain on the right side of her chest where the rib fractures are. She declines any pain medication here or for home. Does have extensive bruising. No evidence of intracranial hemorrhage. No evidence of cervical spine fracture. She did test positive for COVID yesterday and requests an antiviral medication. Some of her medications interact with Paxlovid, therefore molnupiravir will be used. Patient is well-appearing, nontoxic. Afebrile. No hypoxia. No respiratory distress. Patient counseled regarding signs and symptoms for which I believe and urgent re-evaluation would be necessary. Patient with good understanding of and agreement to plan and is comfortable going home at this time This document was made in part using voice recognition software. While efforts are made to proofread this document, sound alike and grammatical errors may occur. Departure - Departure Disposition: Home, Self Care Clinical Impression: COVID Nasal bone fracture Qualifiers: Encounter type: initial encounter Fracture type: closed Qualified Code(s): S02.2XXA - Fracture of nasal bones, initial encounter for closed fracture Rib fractures Qualifiers: Encounter type: initial encounter Fracture type: closed Laterality: right Qualified Code(s): S22.41XA - Multiple fractures of ribs, right side, initial encounter for closed fracture Condition: Good Instructions: ED Fx Nasal Conf W X Ray, ED Fx Rib, ED Viral Syndrome Follow-Up: your,doctor in 3 days [Other] Comments: Please follow-up with your doctor for further care. Your CT scan shows a nasal bone fracture, this should heal on its own. You also have right-sided rib fractures, ribs 4 through 6. These should heal on their own as well. Please return if you worsen. Make sure you are taking plenty of deep breaths. You were also given molnupiravir tonight for COVID. Discharge Date/Time: 04/05/23 19:27
[2023-04-05 19:15] VITALS: BP 141/87
== END 2023-04-05 19:27 | disposition home or self-care (01) ==
LOC: ED 16:51
DX: S02.2XXA Fracture of nasal bones, initial encounter for closed fracture (principal); S22.41XA Multiple fractures of ribs, right side, initial encounter for closed fracture; W18.30XA Fall on same level, unspecified, initial encounter; Y93.01 Activity, walking, marching and hiking; U07.1 COVID-19
CPT/HCPCS: 70450; 70486; 71250; 72125; 99283; 99284; J3490

== ENCOUNTER 2023-05-04 14:17 | Outpatient (CLI) | payer MEDICARE ==
--- NOTE | 2023-05-05 12:48 | DEXA Report ---
PROCEDURE: Dexa Spine and/or Hip INDICATIONS: POST MENOPAUSAL TECHNIQUE: Dual energy x-ray absorptiometry (DXA) was performed on a [employer] System. Regions measur ed are the AP Spine, femoral neck, and if needed forearm. COMPARISON: DEXA, 04/03/2021. FINDINGS: Lumbar Spine: Bone Mineral Density 1.183 g/cm/cm,T score 0.0. Left Femoral Neck: Bone Mineral Density 0.847 g/cm/cm, T score -1.4. Left Hip: Bone Mineral Density 0.904 g/cm/cm,T score -0.8. Left Forearm: Bone Mineral Density 0.6-7 g/cm/cm, T score -2.8. (T score greater or equal to -1.0: NORMAL) (T score from -1.1 to -2.4: OSTEOPENIA) (T score less than or equal to -2.5 to: OSTEOPOROSIS) Compared with the last exam, the bone density in lumbar spine has increased by 10.4%. There is no sig nificant change in bone density of the left hip and left forearm. Impression: 1. By WHO criteria, this patient has osteoporosis. 2. Compared to last exam, the bone density in lumbar spine has increased. There is no significant ch pravin in bone density of the left hip and left forearm. Patients with diagnosis of osteoporosis or osteopenia should have regular bone mineral density assess ment. For those eligible for Medicare, routine testing is allowed once every 2 years. Testing frequ ency can be increased for patients who have rapidly progressing disease or for those who are receivin g medical therapy to restore bone mass. Reviewed by: Sae Lee MD on 05/05/2023 12:46 PM PDT Approved by: Sae Lee MD on 05/05/2023 12:46 PM PDT Station ID: [id number]
== END 2023-05-04 14:18 | disposition home or self-care (01) ==
LOC: DI 14:17
PROVIDERS: ATTEND Physician Assistant Medical
DX: Z78.0 Asymptomatic menopausal state (principal); M81.0 Age-related osteoporosis without current pathological fracture

== ENCOUNTER 2024-01-04 11:00 | Day surgery (SDC) | payer MEDICARE ==
[2024-01-04] MEDS: LACTATED RINGERS 1,000 ML IV ONE (11:06)
[2024-01-04] MEDS ORDERED: PROPOFOL 500 MG/50 ML 500 MG/50 ML VIAL ONE (11:20)
[2024-01-04] MEDS ORDERED: ONDANSETRON 4 MG/2 ML VIAL ONE (11:32)
--- NOTE | 2024-01-04 11:36 | ANESTHESIA ---
Pre-Anesthesia VS, & Labs - Diagnosis screening - Procedure colonoscopy Vital Signs: Temp Pulse Resp BP Pulse Ox O2 Flow Rate 36.4 C L 86 16 162/96 H 100 01/04/24 11:06 01/04/24 11:06 01/04/24 11:06 01/04/24 11:06 01/04/24 11:06 Height: 5 ft 7 in Weight (kg): 70.8 kg Body Mass Index: 24.4 BMI Classification: Normal - NPO >8 hours - Is Patient ?: No Home Medications and Allergies Calcium Carbonate [Calcium] 500 mg PO DAILY 05/27/15 Metoprolol Tartrate 50 mg PO BID 05/27/15 Simvastatin 40 mg PO QPM 05/27/15 Calcium Carbonate/Vitamin D3 [Calcium 600-Vit D3 400 Tablet] 1 cap PO DAILY 11/18/17 Levothyroxine [Synthroid] 125 mcg PO QDAC 11/18/17 Rivaroxaban [Xarelto] 20 mg PO DAILY 11/18/17 calcitrioL [Calcitriol] 0.25 mcg PO TID 11/18/17 Allergies/Adverse Reactions: Allergies Allergy/AdvReac Type Severity Reaction Status Date / Time ibuprofen AdvReac Unknown Verified 01/04/24 11:26 procaine HCl * AdvReac Anxiety Verified 01/04/24 11:26 [From Novocain] Anes History & Medical History - Anesthetic History Anesthesia Complications: reports: No previous complications Family history of Anesthesia Complications: Denies Family history of Malignant Hyperthermia: Denies - Medical History Cardiovascular: reports: Hypertension, Atrial fibrillation Pulmonary: reports: None Gastrointestinal: reports: None Urinary: reports: None Neuro: reports: None Musculoskeletal: reports: None Endocrine/Autoimmune: reports: HyPOthyroidism Blood Disorders: reports: None Skin: reports: None Smoking Status: Never smoker Psychosocial: reports: Anxiety History of Cancer?: No - Surgical History General: reports: Colonoscopy Eyes Ears Nose Throat (EENT): reports: Other Gynecologic: reports: Hysterectomy Exam General: Alert, Oriented x3, Cooperative Dental: WNL Mouth Openin Fingerbreadth Neck Mobility: Normal Mallampati classification: II Thyromental Distance: 4-6 cm Respiratory: Lungs clear Cardiovascular: Other (A Fib CVR) Plan Anesthesia Type: General, Total IV Consent for Procedure(s) Verified and Reviewed: Yes Code Status: Attempt Resuscitation ASA classification: 2-Mild systemic disease Is this case an emergency?: No
[2024-01-04] MEDS ORDERED: GLYCOPYRROLATE 1 MG/5 ML VIAL ONE (12:09)
[2024-01-04] MEDS: LACTATED RINGERS 100 ML IV ONE (12:46)
[2024-01-04 13:14] VITALS: BP 132/76; O2SAT 99
--- NOTE | 2024-01-05 19:14 | ANESTHESIA POST OP EVALUATION ---
Anesthesia Post Eval - Post Anesthesia Eval Vitals: Last Vital Signs Temp 36.2 C L 01/04/24 13:06 Pulse 74 01/04/24 13:06 Resp 18 01/04/24 13:06 BP 132/76 H 01/04/24 13:06 Pulse Ox 99 01/04/24 13:06 O2 Flow Rate CV Function Including HR & BP: Stable Pain Control: Satisfactory Nausea & Vomiting: Negative Mental Status: Baseline Respiratory Status: Airway Patent Hydration Status: Satisfactory Anesthesia Complications: None
== END 2024-01-04 11:01 | disposition home or self-care (01) ==
LOC: SDS 11:00
PROVIDERS: ATTEND Surgery
PROC: 0DBL8ZZ Excision of Transverse Colon, Via Natural or Artificial Opening Endoscopic (ICD-10-PCS; 2024-01-04)
PROC: 0DBN8ZZ Excision of Sigmoid Colon, Via Natural or Artificial Opening Endoscopic (ICD-10-PCS; 2024-01-04)
PROC: 3E0H8KZ Introduction of Other Diagnostic Substance into Lower GI, Via Natural or Artificial Opening Endoscopic (ICD-10-PCS; 2024-01-04)
PROC: 0DBK8ZZ Excision of Ascending Colon, Via Natural or Artificial Opening Endoscopic (ICD-10-PCS; principal; 2024-01-04 12:30)
DX: Z12.11 Encounter for screening for malignant neoplasm of colon (principal); D12.3 Benign neoplasm of transverse colon; K63.5 Polyp of colon; K57.30 Diverticulosis of large intestine without perforation or abscess without bleeding; I48.91 Unspecified atrial fibrillation; Z79.01 Long term (current) use of anticoagulants; I42.9 Cardiomyopathy, unspecified; I10 Essential (primary) hypertension
CPT/HCPCS: 45380; 45381; 45385; J7120

== ENCOUNTER 2024-05-06 12:56 | Emergency (ER) | payer MEDICARE ==
[2024-05-06 13:27] VITALS: BP 143/79; O2SAT 100
--- NOTE | 2024-05-06 14:13 | XRAY Report ---
PROCEDURE: Knee 4+V RT INDICATIONS: Trauma TECHNIQUE: 4 views of the knee(s) were acquired. COMPARISON: None. FINDINGS: Bones: No fractures or dislocations. No suspicious bony lesions. Soft tissues: No knee joint effusion. No suspicious soft tissue calcifications or masses. IMPRESSION: No acute bony abnormality. If pain persists with conservative management, consider further evaluation with cross-sectional imagi ng such as CT or MRI. Reviewed by: Soniya Koroma MD, PhD on 05/06/2024 1:11 PM DONALD Approved by: Soniya Koroma MD, PhD on 05/06/2024 1:11 PM DONALD Station ID: [id number]
--- NOTE | 2024-05-06 15:55 | ED Physician Documentation ---
History of Present Illness - Stated complaint Stated Complaint: RT LEG PX - Chief complaint Chief Complaint: Trauma Ext - History obtained from History obtained from: Patient - History of Present Illness Pain level max: 5 Pain level now: 5 - Additonal information Additional information: Patient is a 78-year-old female who presents to the emergency department complaint of right leg pain. She states on April 21 she fell through an attic, injuring her right leg. She takes Xarelto at home. She noticed increased swelling and pain over the past 2 days, decided to come in for evaluation today. Most of the pain and swelling is on the lateral aspect of the leg and over the right knee. 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 HEENT: Other - Present Medications Home Medications: Ambulatory Orders Medication Instructions Recorded Confirmed Calcium Carbonate [Calcium] 500 mg PO DAILY 05/27/15 01/04/24 Metoprolol Tartrate 50 mg PO BID 05/27/15 01/04/24 Simvastatin 40 mg PO QPM 05/27/15 01/04/24 Calcium Carbonate/Vitamin D3 1 cap PO DAILY 11/18/17 01/04/24 [Calcium 600-Vit D3 400 Tablet] Levothyroxine [Synthroid] 125 mcg PO QDAC 11/18/17 01/04/24 Rivaroxaban [Xarelto] 20 mg PO DAILY 11/18/17 01/04/24 calcitrioL [Calcitriol] 0.25 mcg PO TID 11/18/17 01/04/24 - Allergies Allergies/Adverse Reactions: Allergies Allergy/AdvReac Type Severity Reaction Status Date / Time ibuprofen AdvReac Unknown Verified 05/06/24 13:24 procaine HCl * AdvReac Anxiety Verified 05/06/24 13:24 [From Novocain] - Social History Does the pt smoke?: No Smoking Status: Never smoker Does the pt drink ETOH?: Yes Does the pt have substance abuse?: No - Immunizations Immunizations are current?: Yes - POLST Patient has POLST: No PD ED PE NORMAL - Vitals Vital signs reviewed: Yes - General General: Alert and oriented X 3, No acute distress - HEENT HEENT: Atraumatic, Moist mucous membranes, Pharynx benign - Neck Neck: Supple, no meningeal sign, No bony TTP - Cardiac Cardiac: RRR - Respiratory Respiratory: No respiratory distress, Clear bilaterally - Back Back: No spinal TTP - Derm Derm: Warm and dry - Extremities Extremities: Other - Neuro Neuro: Alert and oriented X 3 - Free text exam Free text exam: Right knee, no significant joint effusion. Mild swelling superior and lateral to the knee along with swelling on the right lateral thigh. Neurovascular intact. ACL, MCL, PCL, LCL are intact. Does have some pain with range of motion. Brisk cap refill. Results - Vitals Vitals: Vital Signs - 24 hr 05/06/24 13:19 Temperature 36.7 C Heart Rate 81 Respiratory 18 Rate Blood Pressure 143/79 H O2 Saturation 100 Oxygen O2 Source Room air - Rads (name of study) Right knee x-ray Relevant Findings:: Final report received, See rad report Duplex US rle Relevant Findings:: Final report received, See rad report PD Medical Decision Making - ED course Complexity details: reviewed results, re-evaluated patient, considered differential, d/w patient ED course: No significant abnormalities on right knee x-ray. Duplex ultrasound of the right lower extremity does not show any evidence of DVT. An Juan bandage was applied for compression and appears to have a resolving hematoma in the right lateral thigh, likely the cause of her swelling. Offered pain medication, crutches, walker, patient declines all of this. She states that she has not been taking anything for pain and can use Tylenol at home. I think this is reasonable. She can use a heating pad at home as well. Recommend she follow-up with her doctor for further care and return if she worsens. Patient counseled regarding signs and symptoms for which I believe and urgent re-evaluation would be necessary. Patient with good understanding of and agreement to plan and is comfortable going home at this time This document was made in part using voice recognition software. While efforts are made to proofread this document, sound alike and grammatical errors may occur. Departure - Departure Disposition: 01 Home, Self Care Clinical Impression: Peripheral edema Condition: Good Instructions: ED Leg Swelling Unilateral Follow-Up: Your,doctor in 1 week [Other] Comments: Your leg swelling appears to be likely the result of a hematoma from your fall. Your x-ray does not show any acute abnormalities. Your ultrasound does not show any evidence of DVT. Would recommend Tylenol as needed for pain. You can try heat to the site of your thigh as well. There is no blood clot on ultrasound. Please follow-up with your doctor for further care and return if you worsen. Forms: PCP List Discharge Date/Time: 05/06/24 17:55
--- NOTE | 2024-05-06 17:39 | Ultrasound Report ---
PROCEDURE: Duplex Ext Veins Right INDICATIONS: R LE swelling s/p fall TECHNIQUE: Real-time imaging, as well as color and pulse Doppler interrogation, were performed of the lower extr emity deep veins from the inguinal ligament to the popliteal fossa. Attempted visualization of the ca lf veins was performed. COMPARISON: None. FINDINGS: The deep veins are normally compressible, and free of intraluminal thrombus. Color and pu lse Doppler demonstrate normal phasic intraluminal flow. There is normal augmentation response to di stal compression maneuver. IMPRESSION: No deep venous thrombosis of the visualized lower extremity. Agree with preliminary interpretation provided to the ordering provider by the ultrasound technologis t. Reviewed by: Soniya Koroma MD, PhD on 05/06/2024 4:38 PM DONALD Approved by: Soniya Koroma MD, PhD on 05/06/2024 4:38 PM DONALD Station ID: [id number]
== END 2024-05-06 17:55 | disposition home or self-care (01) ==
LOC: ED 12:56
DX: R60.0 Localized edema (principal)
CPT/HCPCS: 99283; 99284

== ENCOUNTER 2024-05-11 09:40 | Outpatient (CLI) | payer MEDICARE ==
--- NOTE | 2024-05-11 12:49 | CT Report ---
PROCEDURE: Pelvis WO INDICATIONS: RIGHT LEG PAIN, RIGHT LEG SWELLING, RIGHT HIP PAIN TECHNIQUE: Noncontrast 3 mm axial sections acquired through the bony pelvis, with coronal and sagittal reformatt ing. For radiation dose reduction, the following was used: automated exposure control, adjustment of mA and/or kV according to patient size. COMPARISON: None. FINDINGS: Image quality: Excellent. Bones: No displaced fractures. Nonuniform joint space narrowing of the hips. There is subchondral cy stic change of the acetabulum, with sclerosis seen on the right. No bony deformity. Transitional L5 v ertebrae with degenerative changes along the left-sided articulation with the S1 and pelvis. Opposing endplate sclerosis at L4-5. Joint spaces are of the sacroiliac joints, with mild sclerosis and subch ondral cystic change. Soft tissues: Soft tissue edema within the deep and superficial muscle compartments of the proximal right lower extremity. IMPRESSION: No displaced fractures. Soft tissue edema within the deep and superficial muscle compartments of the right lower extremity. N o measurable hematoma. Degenerative changes of the hips, spine and sacroiliac joints. Reviewed by: Lamberto Young MD on 05/11/2024 12:47 PM PDT Approved by: Lamberto Young MD on 05/11/2024 12:47 PM PDT Station ID: [id number]
--- NOTE | 2024-05-11 16:30 | CT Report ---
PROCEDURE: Lower Extremity RT WO INDICATIONS: RIGHT LEG PAIN, RIGHT LEG SWELLING, RIGHT HIP PAIN TECHNIQUE: Noncontrast 3-mm axial sections acquired from the distal tibial shaft to the talar dome, with coronal and sagittal reformats. For radiation dose reduction, the following was used: automated exposure c ontrol, adjustment of mA and/or kV according to patient size. COMPARISON: Right knee radiographs 05/06/2024. FINDINGS: Image quality: Excellent. Bones: No acute osseous fracture or dislocation. Moderate degenerative changes are seen in the anter osuperior aspect of the right hip. No suspicious intraosseous lesion. Tricompartmental degenerative c hanges are seen in the left knee. Soft tissues: Intramuscular edema is seen throughout the majority of the vastus intermedius muscle. There is mild intramuscular fascial edema in the medial and anterior portions of the mid to upper thi gh. Chronic fatty infiltration of the proximal rectus femoris muscle. No definite tendon tearing is s een. However, the tendons, ligaments, articular cartilages are not well evaluated with CT. There is a small knee effusion. No significant hip effusion. Mild nonspecific subcutaneous edema is seen throug hout the majority of the thigh. IMPRESSION: 1.Nonspecific diffuse intramuscular hypoattenuation and edema throughout the vastus intermedius muscl e. There is mild intermuscular edema throughout the medial and anterior compartments. Recommend corre lation with clinical history and exam. MRI could be performed for further evaluation if indicated cli nically. 2.No acute osseous fracture. No focal soft tissue hematoma. 3.Moderate right hip osteoarthrosis. Tricompartmental degenerative changes are seen in the knee. Reviewed by: Abdi Guaman MD on 05/11/2024 4:29 PM PDT Approved by: Abdi Guaman MD on 05/11/2024 4:29 PM PDT Station ID: [id number]
== END 2024-05-11 09:41 | disposition home or self-care (01) ==
LOC: DI 09:40
PROVIDERS: ATTEND Physician Assistant
DX: M47.817 Spondylosis without myelopathy or radiculopathy, lumbosacral region (principal); M16.0 Bilateral primary osteoarthritis of hip; M46.1 Sacroiliitis, not elsewhere classified; M17.11 Unilateral primary osteoarthritis, right knee; R60.0 Localized edema; Z91.81 History of falling

== ENCOUNTER 2024-05-23 08:12 | Outpatient (CLI) | payer MEDICARE ==
[2024-05-23 08:45] LABS: BUN - BLOOD UREA NITROGEN 22 mg/dL (6-20); CALCIUM 9.8 mg/dL (8.5-10.3); CARBON DIOXIDE - CO2 30 mmol/L (21-32); CHLORIDE 104 mmol/L (101-111); CHOL/HDL RATIO 2.1 (<4.4); CHOLESTEROL 129 mg/dL; CREATININE 1.1 mg/dL (0.6-1.3); GFR - MDRD 48 (>89); GLUCOSE 91 mg/dL (74-104); HDL CHOLESTEROL 61 mg/dL; LDL CHOLESTEROL,CALCULATED 57 mg/dL; LDL/HDL RATIO 0.9 (<4.4); POTASSIUM 3.8 mmol/L (3.5-4.5); SODIUM 140 mmol/L (135-145); TRIGLYCERIDES 57 mg/dL; VLDL CHOLESTEROL 11 mg/dL
== END 2024-05-23 08:13 | disposition home or self-care (01) ==
LOC: LAB 08:12
PROVIDERS: ATTEND Physician Assistant
DX: E21.3 Hyperparathyroidism, unspecified (principal); T14.8XXA Other injury of unspecified body region, initial encounter; E78.5 Hyperlipidemia, unspecified
CPT/HCPCS: 36415; 80048; 80061; 82550; 83721; 83970

== ENCOUNTER 2024-06-27 10:11 | Outpatient (CLI) | payer MEDICARE ==
--- NOTE | 2024-06-29 08:01 | Mammography Report ---
BILATERAL DIGITAL SCREENING MAMMOGRAM 3D/2D: 06/27/2024 CLINICAL: Routine screening. Comparison is made to exams dated: 12/15/2022 mammogram, 04/02/2021 mammogram, 11/28/2019 mammogram, mammogram, 11/11/2018 mammogram, and 10/14/2016 mammogram - [facility]. There are scattered areas of fibroglandular density in both breasts (category b / 25%-50% glandular t issue). No significant masses, calcifications, or other findings are seen in either breast. There has been no significant interval change. IMPRESSION: NEGATIVE There is no mammographic evidence of malignancy. A 1 year screening mammogram is recommended. Based on the Tyrer Cuzick model (a risk assessment model) the patient's lifetime risk is 2.7% and her 10 year risk is 0.0%. According to the ACR, ACS, and NCCN guidelines, an annual breast MRI exam charbel g with mammogram is recommended if the patient's lifetime risk is 20% or greater. This exam was interpreted at Station ID: [id number]. NOTE: For mammograms, a report in lay terms will be sent to the patient. Approximately 15% of breast malignancies will not be visualized mammographically. In the management of a palpable breast mass, a negative mammogram must not discourage biopsy of a clinically suspicious lesion. Electronically Signed By: Soniya Koroma M.D., Ph.D. salma/radha:06/28/2024 08:57:38 letter sent: No_Letter ACR BI-RADS Category 1: Negative [id number] PARENCHYMAL PATTERN: (A) - The breast(s) demonstrate(s) scattered fibroglandular densities. BI-RADS CATEGORY: (1) - 1 RECOMMENDATION: (ANNUAL) - Recommend routine annual screening mammography. [id number] 1 year screening LATERALITY: (B)
== END 2024-06-27 10:12 | disposition home or self-care (01) ==
LOC: DI 10:11
DX: Z12.31 Encounter for screening mammogram for malignant neoplasm of breast (principal); R92.323 Mammographic fibroglandular density, bilateral breasts

== ENCOUNTER 2024-06-30 14:45 | Outpatient (CLI) | payer MEDICARE ==
--- NOTE | 2024-07-03 19:38 | XRAY Report ---
PROCEDURE: Knee 4+V LT INDICATIONS: PAIN IN LEFT KNEE TECHNIQUE: 3 views of the knee was obtained. COMPARISON: None FINDINGS: Bones: No fractures or dislocations. No suspicious bony lesions. Moderate medial compartment joint space narrowing and small marginal osteophyte Soft tissues: Moderate knee joint effusion. No suspicious soft tissue calcifications or masses. 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
== END 2024-06-30 14:46 | disposition home or self-care (01) ==
LOC: DI 14:45
PROVIDERS: ATTEND Physician Assistant Surgical
DX: M17.12 Unilateral primary osteoarthritis, left knee (principal); M25.462 Effusion, left knee